=== PATIENT | female | born 1970 | race African-American/Black ===

== ENCOUNTER 2019-08-09 23:35 | Emergency (ER) | payer SELFPAY ==
[2019-08-10] MEDS ORDERED: Gabapentin 300 MG CAP PO SCH (00:45)
[2019-08-10 01:01] LABS: #Basophils 0.1 thou/uL (0.0-0.2); #Eosinphils 0.6 thou/uL (0.0-0.7); #Lymphocytes 2.6 thou/uL (1.20-3.40); #Monocytes 0.5 thou/uL (0.11-0.59); #Neutrophils 6.9 thou/uL (1.40-6.50); %Basophils 0.8 % (0.0-1.0); %Eosinophils 5.2 % (0.0-10.0); %Lymphocytes 24.2 % (21.0-51.0); %Monocytes 4.9 % (0.0-10.0); %Neutrophils 64.9 % (42.0-75.0); Hemoglobin 12.2 g/dL (12.0-16.0); Mean Corpuscular HGB CONC 35.6 g/dL (32.0-36.0); Mean Corpuscular Hemoglobin 32.2 pg (27.0-31.0); Mean Corpuscular Volume 90.2 fL (78.0-98.0); Platelet Count 332 thou/uL (130-400); RBC Distribution Width 12.8 % (11.5-14.5); Red Blood Cell (RBC) Count 3.78 mill/uL (4.20-5.40); White Blood Cell (WBC) Count 10.7 thou/uL (4.8-10.8)
[2019-08-10 01:13] LABS: ALT (SGPT) 10 U/L (8-55); AST (SGOT) 15 U/L (5-34); Albumin 3.9 g/dL (3.5-5.0); Alkaline Phosphatase 67 U/L (40-110); Anion Gap 15 mmol/L (10-20); BUN (Urea Nitrogen) 10 mg/dL (7.0-18.7); Bilirubin, Total Less than 0.2 mg/dL (0.2-1.2); CK (CPK) 155 U/L (29-168); Calc. Creatinine Clearance 0 mL/min (70-130); Calcium 8.3 mg/dL (7.8-10.44); Carbon Dioxide 26 mmol/L (22-29); Chloride 97 mmol/L (98-107); Estimated GFR-MDRD 72; Globulin 3.6 g/dL (2.4-3.5); Glucose 86 mg/dL (70-105); Potassium 3.3 mmol/L (3.5-5.1); Protein, Total 7.5 g/dL (6.0-8.3); Sodium 135 mmol/L (136-145)
--- NOTE | 2019-08-10 11:04 | RAD ---
THREE VIEWS OF THE RIGHT FOOT: INDICATION: History of fall with right foot pain. COMPARISON: Comparisons are available from 07/22/2019. FINDINGS: No displaced fracture is evident. Small accessory ossicle is seen adjacent to the navicular. [place] alignment is preserved. No radiopaque foreign body is noted. There is soft tissue swelling of th e foot and ankle which is new from the prior exam. IMPRESSION: 1. Diffuse soft tissue swelling of the right foot and ankle. 2. No definite acute fracture demonstrated. POS: BH
--- NOTE | 2019-08-10 11:05 | RAD ---
AP VIEW OF THE PELVIS: INDICATION: Fall with pelvic pain. FINDINGS: There is mild degenerative change of both hips. There is degenerative change of the SI joints and sy mphysis pubis. No displaced fracture is evident. Visualized bowel gas pattern is unobstructed. IMPRESSION: No definite acute osseous abnormality. POS: BH
--- NOTE | 2019-08-10 11:06 | RAD ---
FOUR VIEWS OF THE RIGHT KNEE: INDICATION: History of right knee pain after a fall. COMPARISON: None. FINDINGS: There is diffuse soft tissue edema involving the right leg. There are marginal osteophytes affecting the major compartments of the right knee. No joint capsular distention or acute fracture is demonst rated. IMPRESSION: Moderate osteoarthrosis of the right knee. No acute osseous abnormality. POS: BH
== END 2019-08-10 03:40 | disposition home or self-care (01) ==
LOC: ERS 23:35
DX: S80.01XA Contusion of right knee, initial encounter (principal); S90.31XA Contusion of right foot, initial encounter; G62.9 Polyneuropathy, unspecified; F12.129 Cannabis abuse with intoxication, unspecified; I25.2 Old myocardial infarction; I11.0 Hypertensive heart disease with heart failure; I50.9 Heart failure, unspecified; K21.9 Gastro-esophageal reflux disease without esophagitis; F41.9 Anxiety disorder, unspecified; F31.9 Bipolar disorder, unspecified; F17.210 Nicotine dependence, cigarettes, uncomplicated; Z86.718 Personal history of other venous thrombosis and embolism; Z86.711 Personal history of pulmonary embolism; Z79.899 Other long term (current) drug therapy; W19.XXXA Unspecified fall, initial encounter
CPT/HCPCS: 36415; 72170; 80053; 82550; 85025

== ENCOUNTER 2019-11-07 12:56 | Inpatient (IN) | payer OTHER, SELFPAY ==
[~2019-11-07 12:56] MED LIST: Iopamidol-370 76% 500 ML 1 ML ONE
[2019-11-07 13:32] LABS: #Eosinphils 0.8 thou/uL (0.0-0.7); #Lymphocytes 1.9 thou/uL (1.20-3.40); #Monocytes 0.5 thou/uL (0.11-0.59); #Neutrophils 4.6 thou/uL (1.40-6.50); %Basophils 0.5 % (0.0-1.0); %Eosinophils 10.4 % (0.0-10.0); %Lymphocytes 24.2 % (21.0-51.0); %Monocytes 5.8 % (0.0-10.0); %Neutrophils 59.1 % (42.0-75.0); Hemoglobin 13.2 g/dL (12.0-16.0); Mean Corpuscular HGB CONC 33.1 g/dL (32.0-36.0); Mean Corpuscular Hemoglobin 30.5 pg (27.0-31.0); Mean Corpuscular Volume 92.4 fL (78.0-98.0); Mean Platelet Volume 7.5 fL (7.4-10.4); Platelet Count 327 thou/uL (130-400); Red Blood Cell (RBC) Count 4.32 mill/uL (4.20-5.40); White Blood Cell (WBC) Count 7.8 thou/uL (4.8-10.8)
[2019-11-07 13:48] LABS: ALT (SGPT) 13 U/L (8-55); AST (SGOT) 13 U/L (5-34); Albumin 3.6 g/dL (3.5-5.0); Alkaline Phosphatase 76 U/L (40-110); Anion Gap 14 mmol/L (10-20); BUN (Urea Nitrogen) 11 mg/dL (7.0-18.7); Bilirubin, Total Less than 0.2 mg/dL (0.2-1.2); CK (CPK) 69 U/L (29-168); Calc. Creatinine Clearance 0 mL/min (70-130); Calcium 8.9 mg/dL (7.8-10.44); Carbon Dioxide 29 mmol/L (22-29); Chloride 100 mmol/L (98-107); Estimated GFR-MDRD 81; Globulin 3.5 g/dL (2.4-3.5); Glucose 99 mg/dL (70-105); Potassium 3.7 mmol/L (3.5-5.1); Protein, Total 7.1 g/dL (6.0-8.3); Sodium 139 mmol/L (136-145)
--- NOTE | 2019-11-07 14:03 | RAD ---
EXAM: CHEST ONE VIEW: 11/07/19 HISTORY: Left substernal chest pain, worse with moving and breathing. COMPARISON: 02/13/19. FINDINGS: Heart size is within normal limits. The lungs are clear. IMPRESSION: No significant acute intrathoracic disease. POS: OFF
[2019-11-07 15:09] LABS: Bilirubin Negative (Negative); Blood, Urine Negative (Negative); Clarity Clear (Clear); Glucose, Urine (Dipstick) Normal (Negative); Ketone, Urine Negative (Negative); Leukocyte Negative Leu/uL (Negative); Nitrite Negative (Negative); Protein, Urine (Dipstick) Negative (Neg-Trace); Specific Gravity, Urine 1.008 (1.002-1.036); Urobilinogen Normal mg/dL (Less than 2)
[2019-11-07 15:10] LABS: Pregnancy Test - Urine (BHCG) Negative (Negative); Pregu Control Background? CLEAR/WHITE (CLR/WHITE); Pregu Control Bar Appear? YES (CONTROL BAR); Specific Gravity 1.008 (1.002-1.036)
--- NOTE | 2019-11-07 16:30 | CT ---
CTA Angio Chest W WO Con History: Chest pain Comparison: Chest radiograph same day Findings: CT angiogram chest performed after the intravenous administration of contrast. 3-D renderin g provided. No proximal segmental pulmonary arterial filling defect. Aortic size is normal. No significant perica rdial effusion. Faint groundglass opacities within the posterior segment right upper lobe. Incidental note is made of mild flattening of the anterior aorta due to enlarged right diaphragmatic carloz. No aortic dissection. Moderate volume fluid in the pericardial recesses. Small volume debris within the distal trachea. Sternum and manubrium are intact. Thoracic spine is intact. No displaced rib fracture. Impression: 1. No pulmonary embolism. 2. Faint groundglass posterior segment right upper lobe could be aspiration in nature due to debris w ithin the distal trachea.. 3. Incidental note is made of mild anteroposterior flattening of the aorta from an enlarged right ganga phragmatic carloz axial image [id number].
[2019-11-07] MEDS ORDERED: Nitroglycerin 2% Ointment 1 INCH/1 GM Packet ONE (17:44)
--- NOTE | 2019-11-07 18:45 | PDOC.HHP ---
Hospitalist HPI - History of Present Illness Chest pain History of Present Illness: Ms. Bravo is a 49-year-old female with a past medical history of CHF, asthma, hypertension, hyperlipidemia, GERD, pulmonary embolism not on anticoagulation, depression, bipolar disorder who presents with 48 hours of chest pain. Patient reports that her chest pain started yesterday initially as left shoulder pain and then moved to her sternum. Initially pain was relieved with antacids however pain persisted this morning. Describes pain as a pressure that is worse with inspiration. Denies nausea vomiting, shortness of breath, abdominal pain. Denies dizziness, lightheadedness, palpitations. Reports that she has been under additional stress lately with her father in the ICU, and her sister who just had a baby yesterday who lives with her. Follows with corrective therapist, Dr. Bernard. Initially in the ED patient reports that she had a heart attack, however on further questioning this appears to have been the same incident as her pulmonary embolism in September 2016 in which she had a mild elevation in her troponins not associated with ACS. Patient was treated with Coumadin, and Eliquis which she no longer takes. No history of stents, or procedures. Endorses family history of heart disease in her father, grandfather. Patient received 2 doses of nitro, and 10 mg of morphine by EMS. Patient also reports that she took carvedilol 25 mg, and 325 ASA prior to arrival. In the ED EKG showed type I AV block, nonspecific T wave changes. No ST elevation., Chest x-ray negative for acute pathology, CTA negative for PE with mild incidental flattening of the aorta at the level of the diaphragmatic carloz. BNP 110, troponin 0 0.012, H/H 13.2/39.9. WBC 7.8, BUN/CR 11/0.9. Sodium 139, potassium 3.7 AST/ALT . Patient received Nitropaste, as well as an ice pack to her chest wall with improvement in her chest pain. Heart score 5, patient admitted to medicine service for chest pain rule out and continued monitoring. Hospitalist ROS - Review of Systems Constitutional: denies: fever, chills, sweats, weakness, malaise, other Eyes: denies: pain, vision change, conjunctivae inflammation, eyelid inflammation, redness, other ENT: denies: ear pain, ear discharge, nose pain, nose discharge, nose congestion, mouth pain, mouth swelling, throat pain, throat swelling, other Respiratory: denies: cough, dry, shortness of breath, hemoptysis, SOB with excertion, pleuritic pain, sputum, wheezing, other Cardiovascular: reports: chest pain. denies: palpitations, orthopnea, paroxysmal noc. dyspnea, edema, light headedness, other Gastrointestinal: denies: nausea, vomiting, abdominal pain, diarrhea, constipation, melena, hematochezia, other Genitourinary: denies: dysuria, frequency, incontinence, hematuria, retention, other Musculoskeletal: denies: neck pain, shoulder pain, arm pain, back pain, hand pain, leg pain, foot pain, other Skin: denies: rash, lesions, [place], bruising, other Neurological: reports: numbness (History of neuropathy to bilateral lower extremities.). denies: weakness, incoordination, change in speech, confusion, seizures, other - Medication Medications: Home medications include carvedilol 25 mg twice daily, aspirin 325 mg, amlodipine 10 mg, Lasix 20 mg, Seroquel 100 mg at night, 50 mg a.m., amitriptyline 100 mg, citalopram 40 mg, lovastatin 10 mg, gabapentin 300 mg Patient is allergic to Haldol, lisinopril Hospitalist History - Past Medical History Cardiac: reports: CHF, HTN, Hyperlipidemia Pulmonary: reports: pulmonary embolism [employer]: reports: Peripheral neuropathy Gastrointestinal: reports: GERD Psych: reports: Bipolar, Depression - Past Surgical History Past Surgical History: reports: no pertinent history - Family History Family History: reports: cardiac disorder - Social History Smoking Status: Current every day smoker (1 pack/day) Tobacco Type: cigarettes Alcohol: reports: Occassional Drugs: reports: marijuana Living Situation: With Family Activity level: independent ambulation - Exam General Appearance: NAD, awake alert Eye: PERRL, anicteric sclera ENT: normocephalic atraumatic, no oropharyngeal lesions, moist mucosa Neck: supple, symmetric, no JVD, no thyromegaly, no lymphadenopathy, no carotid bruit Heart: RRR, no murmur, no gallops, no rubs, normal peripheral pulses Heart - other findings: Sternum tender to palpation Respiratory: CTAB, no wheezes, no rales, no ronchi, normal chest expansion, no tachypnea, normal percussion Gastrointestinal: soft, non-tender, non-distended, normal bowel sounds, no palpable masses, no hepatomegaly, no splenomegaly, no bruit Extremities: no cyanosis, no clubbing, no edema Skin: normal turgor, no lesions, no rashes Neurological: cranial nerve grossly intact, no weakness, no focal deficits, no new deficit Musculoskeletal: normal tone, normal strength, no muscle wasting Psychiatric: normal affect, normal behavior, A&O x 3 Hospitalist Results - Labs Result Diagrams: 11/07/19 13:21 11/07/19 13:21 Lab results: WBC 7.8 thou/uL (4.8-10.8) 11/07/19 13:21 Hgb 13.2 g/dL (12.0-16.0) 11/07/19 13:21 Hct 39.9 % (36.0-47.0) 11/07/19 13:21 MCV 92.4 fL (78.0-98.0) 11/07/19 13:21 Plt Count 327 thou/uL (130-400) 11/07/19 13:21 Neutrophils % 59.1 % (42.0-75.0) 11/07/19 13:21 Sodium 139 mmol/L (136-145) 11/07/19 13:21 Potassium 3.7 mmol/L (3.5-5.1) 11/07/19 13:21 Chloride 100 mmol/L (98-107) 11/07/19 13:21 Carbon Dioxide 29 mmol/L (22-29) 11/07/19 13:21 BUN 11 mg/dL (7.0-18.7) 11/07/19 13:21 Creatinine 0.90 mg/dL (0.6-1.1) 11/07/19 13:21 Glucose 99 mg/dL (70-105) 11/07/19 13:21 Calcium 8.9 mg/dL (7.8-10.44) 11/07/19 13:21 Total Bilirubin Less than 0.2 mg/dL (0.2-1.2) L 11/07/19 13:21 AST 13 U/L (5-34) 11/07/19 13:21 ALT 13 U/L (8-55) 11/07/19 13:21 Alkaline Phosphatase 76 U/L (40-110) 11/07/19 13:21 Creatine Kinase 69 U/L (29-168) 11/07/19 13:21 Troponin I 0.010 ng/mL (< 0.028) 11/07/19 17:36 B-Natriuretic Peptide 110.9 pg/mL (0-100) H 11/07/19 13:17 Serum Total Protein 7.1 g/dL (6.0-8.3) 11/07/19 13:21 Albumin 3.6 g/dL (3.5-5.0) 11/07/19 13:21 Urine Ketones Negative mg/dL (Negative) 11/07/19 14:19 Urine Blood Negative (Negative) 11/07/19 14:19 Urine Nitrite Negative (Negative) 11/07/19 14:19 Ur Leukocyte Esterase Negative Abhilash/uL (Negative) 11/07/19 14:19 Hospitalist H&P A/P - Problem (1) Chest pain Code(s): R07.9 - CHEST PAIN, UNSPECIFIED Status: Acute (2) Hyperlipidemia Code(s): E78.5 - HYPERLIPIDEMIA, UNSPECIFIED Status: Acute (3) GERD (gastroesophageal reflux disease) Code(s): K21.9 - GASTRO-ESOPHAGEAL REFLUX DISEASE WITHOUT ESOPHAGITIS Status: Acute (4) Bipolar disorder Code(s): F31.9 - BIPOLAR DISORDER, UNSPECIFIED Status: Acute (5) HTN (hypertension) Code(s): I10 - ESSENTIAL (PRIMARY) HYPERTENSION Status: Acute (6) Tobacco abuse Code(s): Z72.0 - TOBACCO USE Status: Acute - Plan Plan: Chest pain: 49-year-old female with history of CHF, hypertension, hyperlipidemia, PE who presents with squeezing substernal, but reproducible chest pain. EKG showed type I AV block, and nonspecific T wave changes, initial troponin 0 0.012. Chest x-ray negative, CTA negative for PE. Patient received ASA, nitro paste, morphine with improvement in her pain. Heart score 5. Follows with Dr. Bernard. 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 Completed 6 months of treatment with Eliquis. No longer on anticoagulation. CTA negative for PE. Hypertension: Continue home carvedilol, amlodipine, Lasix Hyperlipidemia: Continue home lovastatin 10 mg Peripheral neuropathy: Continue home gabapentin 300 mg, amitriptyline 100 mg Bipolar depression: Continue home Seroquel 100 mg at night, 50 mg in the morning, citalopram 40 mg. Patient's mood is currently stable DVT prophylaxis: Lovenox Full code Case discussed with attending physician, Dr. Jennings
[2019-11-07 19:13] LABS: CKMB 0.5 ng/mL (0-6.6)
[2019-11-07 19:56] VITALS: BMI 42.5
[2019-11-07] MEDS: Gabapentin 300 MG CAP PO SCH (21:10)
[2019-11-07] MEDS: Nitroglycerin 2% Ointment 1 INCH/1 GM Packet TOP SCH (21:13)
[2019-11-07] MEDS ORDERED: Senokot S 8.6-50 MG TAB PO PRN (22:45)
[2019-11-08 04:40] LABS: #Eosinphils 0.7 thou/uL (0.0-0.7); #Monocytes 0.3 thou/uL (0.11-0.59); #Neutrophils 3.4 thou/uL (1.40-6.50); %Basophils 0.6 % (0.0-1.0); %Eosinophils 10.6 % (0.0-10.0); %Lymphocytes 30.9 % (21.0-51.0); %Monocytes 5.4 % (0.0-10.0); %Neutrophils 52.4 % (42.0-75.0); Hemoglobin 11.7 g/dL (12.0-16.0); Mean Corpuscular HGB CONC 32.1 g/dL (32.0-36.0); Mean Corpuscular Hemoglobin 29.8 pg (27.0-31.0); Mean Corpuscular Volume 92.8 fL (78.0-98.0); Mean Platelet Volume 7.3 fL (7.4-10.4); Platelet Count 323 thou/uL (130-400); RBC Distribution Width 12.1 % (11.5-14.5); Red Blood Cell (RBC) Count 3.94 mill/uL (4.20-5.40); White Blood Cell (WBC) Count 6.4 thou/uL (4.8-10.8)
[2019-11-08] MEDS: Acetaminophen 325 MG TAB PO PRN ×3 (05:01→20:29)
[2019-11-08 05:06] LABS: Anion Gap 13 mmol/L (10-20); BUN (Urea Nitrogen) 9 mg/dL (7.0-18.7); Calc. Creatinine Clearance 160 mL/min (70-130); Calcium 8.5 mg/dL (7.8-10.44); Carbon Dioxide 25 mmol/L (22-29); Chloride 100 mmol/L (98-107); Estimated GFR-MDRD Greater than 90; Glucose 77 mg/dL (70-105); Potassium 3.4 mmol/L (3.5-5.1); Sodium 135 mmol/L (136-145)
[2019-11-08] MEDS: Citalopram 20 MG TAB PO SCH (08:07)
[2019-11-08] MEDS: Aspirin 325 mg Enteric Coated Tablet PO SCH (08:07)
[2019-11-08] MEDS: Carvedilol 25 MG TAB PO SCH ×2 (08:07→15:23)
[2019-11-08] MEDS: Enoxaparin Sodium 40 MG/0.4 ML SYRINGE SC SCH ×2 (08:07→16:25)
[2019-11-08] MEDS: Amlodipine 10 MG TAB PO SCH (08:08)
[2019-11-08] MEDS: Gabapentin 300 MG CAP PO SCH ×3 (08:08→19:52)
[2019-11-08] MEDS: Nitroglycerin 2% Ointment 1 INCH/1 GM Packet TOP SCH ×2 (08:08→20:13)
[2019-11-08] MEDS ORDERED: Regadenoson 0.4 MG/5 ML SYRINGE ONE (09:24)
[2019-11-08] MEDS ORDERED: Potassium Citrate 10 MEQ TAB PO SCH (10:00)
[2019-11-08 12:25] LABS: SARS-CoV-2 MS2 Positive; SARS-CoV-2 N Gene Negative; SARS-CoV-2 S Gene Negative; SARS-CoV-2 by NAA Not Detected (NotDetected); SARS-CoV-2 orf1ab Negative
--- NOTE | 2019-11-08 14:28 | PDOC.HOSPP ---
- Subjective Encounter Date: 11/08/19 Encounter Time: 14:00 Subjective: Patient is having her lunch. She does have ongoing intermittent chest pain before and after her stress test which is first part is completed today. - Objective Vital Signs & Weight: Vital Signs (12 hours) Temp Pulse Resp BP Pulse Ox 11/08/19 11:53 97.7 F 76 16 114/66 99 11/08/19 08:08 76 11/08/19 07:43 97.6 F 76 16 117/69 97 11/08/19 03:00 98.0 F 72 14 111/65 95 Weight Weight 247 lb 14.4 oz I&O: 11/07/19 11/08/19 11/09/19 06:59 06:59 06:59 Intake Total 240 360 Output Total 500 Balance -260 360 Result Diagrams: 11/08/19 04:27 11/08/19 04:27 Hospitalist ROS - Medication Medications: Active Medications Generic Name Dose Route Start Last Admin Trade Name Freq PRN Reason Stop Dose Admin Acetaminophen 650 mg 11/07/19 22:45 11/08/19 05:01 Acetaminophen 325 Mg Tab PO 650 mg Q4H PRN Administration Headache/Fever/Mild Pain (1-3) Amlodipine Besylate 10 mg 11/08/19 09:00 11/08/19 08:08 Amlodipine 10 Mg Tab PO 10 mg DAILY ROME Administration Aspirin 325 mg 11/08/19 09:00 11/08/19 08:07 Aspirin 325 Mg Enteric Coated Tablet PO 325 mg DAILY ROME Administration Carvedilol 25 mg 11/08/19 08:00 11/08/19 08:07 Carvedilol 25 Mg Tab PO Not Given BID- ROME Citalopram Hydrobromide 40 mg 11/08/19 09:00 11/08/19 08:07 Citalopram 20 Mg Tab PO 40 mg DAILY RMOE Administration Enoxaparin Sodium 40 mg 11/08/19 09:00 11/08/19 08:07 Enoxaparin Sodium 40 Mg/0.4 Ml Syringe SC Not Given 09 ROME Gabapentin 300 mg 11/07/19 21:00 11/08/19 08:08 Gabapentin 300 Mg Cap PO 300 mg TID ROME Administration Nitroglycerin 1 inch 11/07/19 21:00 11/08/19 08:08 Nitroglycerin 2% Ointment 1 Inch/1 Gm Packet TOP Not Given BID ROME Quetiapine Fumarate 100 mg 11/07/19 21:00 11/07/19 21:10 Quetiapine Fumarate 100 Mg Tab PO 100 mg HS ROME Administration Sodium Chloride 10 ml 11/07/19 22:45 11/08/19 08:10 Flush - Normal Saline 10 Ml Syringe IVF 10 ml PRN PRN Administration Saline Flush - Exam General Appearance: NAD, awake alert Eye: PERRL ENT: normocephalic atraumatic Neck: supple Heart: RRR Respiratory: CTAB, normal chest expansion Gastrointestinal: soft, normal bowel sounds Neurological: no focal deficits Psychiatric: A&O x 3 Hosp A/P - Plan 49-year-old female with history of CHF, hypertension, hyperlipidemia, PE who presents with squeezing substernal, but reproducible chest pain. EKG showed type I AV block, and nonspecific T wave changes, initial troponin 0 0.012. Chest x-ray negative, CTA negative for PE. -First part of stress test completed today -Troponin x3-. Will check A1c TSH and lipid panel. History of pulmonary embolism: History of unprovoked PE in September 2016. Completed 6 months of treatment with Eliquis. Hypertension: Continue home carvedilol, amlodipine, Lasix Hyperlipidemia: Continue home lovastatin 10 mg Peripheral neuropathy: Continue home gabapentin 300 mg, amitriptyline 100 mg Bipolar depression: Continue home Seroquel 100 mg at night, 50 mg in the morning, citalopram 40 mg. Patient's mood is currently stable Mild hypokalemia that is replaced. Pending second part of stress test. Follow-up with lipid panel. She is on lovastatin at home.
--- NOTE | 2019-11-08 18:53 | CON ---
DATE OF CONSULTATION: HISTORY OF PRESENT ILLNESS: Tiffani Bravo is a 49-year-old black female. The patient has been evaluated by Dr. Juárez in the past. In July 2016, she presented with chest discomfort. She had a CT angiogram of the chest, which revealed no evidence of pulmonary embolism. She then underwent nuclear scan, which revealed no evidence of ischemia. This is noted in the discharge summary. However, I do not see a nuclear medicine report in the computer. She then presented again in September 2016 with chest discomfort and underwent CT angiogram of the chest, which revealed extensive bilateral pulmonary emboli. She also had mildly elevated troponin at that time. She was placed on Eliquis and states that she took this until early 2019 and then stopped. She now is admitted with chest pressure that started several days ago. She would have 5-10 minutes of pressure in chest that would resolve. The pain was pleuritic in nature. The discomfort did not seem to be positionally related. She received 2 dose of nitroglycerin as well as 10 mg of morphine. Chest CT angiogram revealed no evidence of pulmonary embolism. There was a faint ground-glass appearance of the posterior segment of the right upper lobe, possibly due to aspiration. It is of note that in these CT angiograms, no reference is made to any coronary artery calcification. Cardiac enzymes have been negative. She has undergone stress portion of Cardiolite with resting portion tomorrow. PAST MEDICAL HISTORY: Hypertension, hyperlipidemia, history of pulmonary embolism, GERD, bipolar disorder. CURRENT MEDICATIONS: 1. Albuterol q.4 hours p.r.n. 2. Amitriptyline 100 at bedtime. 3. Amlodipine 10 mg daily. 4. Aspirin 325 daily. 5. Carvedilol 25 mg b.i.d. 6. Celexa 20 mg daily. 7. Flonase nasal spray. 8. Furosemide 20 q.a.m. 9. Gabapentin 300 t.i.d. 10. Lovastatin 10 q.p.m. 11. Protonix 40 daily. 12. Seroquel 50 q.a.m. and 100 mg at bedtime. 13. Triamterene/hydrochlorothiazide 75/50 q.a.m. ALLERGIES: LISINOPRIL AND HALDOL. SOCIAL HISTORY: She smokes one pack per day and occasionally drinks. REVIEW OF SYSTEMS: Unremarkable except as noted above. PHYSICAL EXAMINATION: VITAL SIGNS: Blood pressure 114/66, pulse of 76. HEENT: PERRL. NECK: Supple. CHEST: Clear. CARDIAC: S1 and S2 normal without any S3, S4, or murmurs. Carotid upstrokes normal without bruits. ABDOMEN: Obese. Normal bowel sounds. No tenderness. EXTREMITIES: Reveal trace pretibial edema. NEUROLOGIC: Grossly intact. SKIN: Warm and dry. MUSCULOSKELETAL: Revealed palpable parasternal tenderness that seems to reproduce her pain. LABORATORY DATA: EKG revealed normal sinus rhythm with possible septal infarction with poor R-wave progression. Hemoglobin 11.7, hematocrit 36.5, white count 6400, platelets 323,000. Sodium 135, potassium 3.4, chloride 100, carbon dioxide 25, BUN 9, creatinine 0.77. Cardiac enzymes are unremarkable. BNP 110.9. IMPRESSION: 1. Atypical chest discomfort, which is pleuritic in nature and she does have palpable chest wall pain and normal cardiac enzymes. 2. History of bilateral pulmonary emboli in September 2016, on anticoagulation for approximately 2-1/2 years. 3. Hypertension. 4. Hypercholesterolemia. 5. Smoker. 6. Gastroesophageal reflux disease. 7. Bipolar disorder. RECOMMENDATIONS: Ms. Spencer chest pain is atypical with palpable chest wall tenderness and a pleuritic component to her pain. The pain does not seem to be positionally related. She is currently undergoing adenosine Cardiolite testing with the rest scan tomorrow. Job ID: [id number] MTDD
[2019-11-08] MEDS: Atorvastatin Calcium 20 MG TAB PO SCH (19:52)
[2019-11-09 04:52] LABS: #Basophils 0.1 thou/uL (0.0-0.2); #Eosinphils 0.8 thou/uL (0.0-0.7); #Lymphocytes 1.9 thou/uL (1.20-3.40); #Monocytes 0.3 thou/uL (0.11-0.59); %Eosinophils 12.7 % (0.0-10.0); %Lymphocytes 31.8 % (21.0-51.0); %Monocytes 4.7 % (0.0-10.0); %Neutrophils 49.7 % (42.0-75.0); Hemoglobin 12.1 g/dL (12.0-16.0); Mean Corpuscular HGB CONC 33.1 g/dL (32.0-36.0); Mean Corpuscular Hemoglobin 30.7 pg (27.0-31.0); Mean Corpuscular Volume 92.9 fL (78.0-98.0); Mean Platelet Volume 7.4 fL (7.4-10.4); Platelet Count 320 thou/uL (130-400); Red Blood Cell (RBC) Count 3.92 mill/uL (4.20-5.40); White Blood Cell (WBC) Count 5.9 thou/uL (4.8-10.8)
[2019-11-09 05:11] LABS: Anion Gap 15 mmol/L (10-20); BUN (Urea Nitrogen) 10 mg/dL (7.0-18.7); Calc. Creatinine Clearance 165 mL/min (70-130); Calcium 8.5 mg/dL (7.8-10.44); Carbon Dioxide 28 mmol/L (22-29); Cardiac Risk 5.1 (Less than 4.5); Chloride 99 mmol/L (98-107); Cholesterol 193 mg/dl (< 200 Desired); Estimated GFR-MDRD Greater than 90; Glucose 74 mg/dL (70-105); HDL Cholesterol 38 mg/dL (>60 Neg Risk); LDL Cholesterol, Calculated 110 mg/dL; Potassium 3.6 mmol/L (3.5-5.1); Sodium 138 mmol/L (136-145); Triglycerides 225 mg/dL (Less than 150)
[2019-11-09] MEDS: Acetaminophen 325 MG TAB PO PRN (06:36)
[2019-11-09] MEDS: Gabapentin 300 MG CAP PO SCH ×3 (08:27→21:10)
[2019-11-09] MEDS: Aspirin 325 mg Enteric Coated Tablet PO SCH (08:27)
[2019-11-09] MEDS: Citalopram 20 MG TAB PO SCH (08:27)
[2019-11-09] MEDS: Amlodipine 10 MG TAB PO SCH (08:27)
--- NOTE | 2019-11-09 10:16 | NM ---
Radionucleotide stress and rest myocardial perfusion scan with CT attenuation correction and SPECT im aging Left ventricular wall motion evaluation and ejection fraction HISTORY: Chest pain. CHF. FINDINGS: There is heterogeneous uptake of radiotracer throughout the left ventricular myocardium. On the stress images, there is a moderate sized area of markedly diminished radiotracer uptake involving the mid to distal portion of the anteroseptal wall, extending to the apex. On the rest imag es, there is normal distribution of radiotracer in this area. QGS analysis of gated SPECT imaging shows no wall motion abnormalities. Ejection fraction calculated at 79%. IMPRESSION : Probably abnormal myocardial perfusion scan, showing reversibility at the anteroseptal wall suggestiv e of ischemia. Preserved LVEF.
[2019-11-09] MEDS: Carvedilol 25 MG TAB PO SCH ×2 (10:30→15:16)
[2019-11-09] MEDS: Nitroglycerin 2% Ointment 1 INCH/1 GM Packet TOP SCH ×3 (10:30→21:11)
[2019-11-09] MEDS: Enoxaparin Sodium 40 MG/0.4 ML SYRINGE SC SCH ×2 (10:30→15:16)
--- NOTE | 2019-11-09 15:43 | PDOC.HOSPP ---
- Subjective Encounter Date: 11/09/19 Encounter Time: 08:50 Subjective: Patient completing her second part of stress test today. She denies any chest pain today. - Objective Vital Signs & Weight: Vital Signs (12 hours) Temp Pulse Resp BP BP Pulse Ox 11/09/19 11:49 98.3 F 71 16 130/73 97 11/09/19 10:50 98 11/09/19 07:53 98.2 F 67 16 111/59 L 98 11/09/19 03:50 98.2 F 70 18 122/60 96 Weight Weight 247 lb 14.4 oz I&O: 11/08/19 11/09/19 11/10/19 06:59 06:59 06:59 Intake Total 240 960 240 Output Total 500 1200 Balance -260 -240 240 Result Diagrams: 11/09/19 04:18 11/09/19 04:18 Hospitalist ROS - Medication Medications: Active Medications Generic Name Dose Route Start Last Admin Trade Name Freq PRN Reason Stop Dose Admin Acetaminophen 650 mg 11/07/19 22:45 11/09/19 06:36 Acetaminophen 325 Mg Tab PO 650 mg Q4H PRN Administration Headache/Fever/Mild Pain (1-3) Amlodipine Besylate 10 mg 11/08/19 09:00 11/09/19 08:27 Amlodipine 10 Mg Tab PO 10 mg DAILY ROME Administration Aspirin 325 mg 11/08/19 09:00 11/09/19 08:27 Aspirin 325 Mg Enteric Coated Tablet PO 325 mg DAILY ROME Administration Atorvastatin Calcium 20 mg 11/08/19 21:00 11/08/19 19:52 Atorvastatin Calcium 20 Mg Tab PO 20 mg HS ROME Administration Carvedilol 25 mg 11/08/19 08:00 11/09/19 15:16 Carvedilol 25 Mg Tab PO 25 mg BID-WM ROME Administration Citalopram Hydrobromide 40 mg 11/08/19 09:00 11/09/19 08:27 Citalopram 20 Mg Tab PO 40 mg DAILY ROME Administration Enoxaparin Sodium 40 mg 11/08/19 09:00 11/09/19 15:16 Enoxaparin Sodium 40 Mg/0.4 Ml Syringe SC 40 mg 0900 ROME Administration Gabapentin 300 mg 11/07/19 21:00 11/09/19 15:15 Gabapentin 300 Mg Cap PO 300 mg TID ROME Administration Nitroglycerin 1 inch 11/07/19 21:00 11/09/19 15:16 Nitroglycerin 2% Ointment 1 Inch/1 Gm Packet TOP 1 inch BID ROME Administration Quetiapine Fumarate 100 mg 11/07/19 21:00 11/08/19 19:52 Quetiapine Fumarate 100 Mg Tab PO 100 mg HS ROME Administration Sodium Chloride 10 ml 11/07/19 22:45 11/09/19 08:28 Flush - Normal Saline 10 Ml Syringe IVF 10 ml PRN PRN Administration Saline Flush - Exam General Appearance: NAD, awake alert Eye: PERRL ENT: normocephalic atraumatic Neck: supple Heart: RRR, normal peripheral pulses Respiratory: CTAB, normal chest expansion Gastrointestinal: soft, normal bowel sounds Neurological: no weakness Hosp A/P - Plan 49-year-old female with history of CHF, hypertension, hyperlipidemia, PE who presents with squeezing substernal, but reproducible chest pain. EKG showed type I AV block, and nonspecific T wave changes, initial troponin 0 0.012. Chest x-ray negative, CTA negative for PE. -First part of stress test completed today -Troponin x3-. Will check A1c TSH and lipid panel. History of pulmonary embolism: History of unprovoked PE in September 2016. Completed 6 months of treatment with Eliquis. Hypertension: Continue home carvedilol, amlodipine, Lasix Hyperlipidemia: Continue home lovastatin 10 mg Peripheral neuropathy: Continue home gabapentin 300 mg, amitriptyline 100 mg Bipolar depression: Continue home Seroquel 100 mg at night, 50 mg in the morning, citalopram 40 mg. Patient's mood is currently stable Mild hypokalemia that is replaced. Pending second part of stress test. Follow-up with lipid panel. She is on lovastatin at home. Stress test showed abnormal with the reversibility anterior wall suggestive of ischemia. Pending further cardiology evaluation.
--- NOTE | 2019-11-09 15:50 | EKG ---
Test Reason : STAT Blood Pressure : / mmHG Vent. Rate : 072 BPM Atrial Rate : 072 BPM P-R Int : 220 ms QRS Dur : 086 ms QT Int : 392 ms P-R-T Axes : 007 -10 -11 degrees QTc Int : 429 ms Sinus rhythm with 1st degree A-V block Septal infarct , age undetermined Abnormal ECG No previous ECGs available Confirmed by ANTONIETA GERBER M.D. ([id number]) on 11/09/2019 3:49:34 PM Referred By: AIDA Confirmed By:ANTONIETA GERBER M.D.
--- NOTE | 2019-11-09 16:30 | PRG ---
DATE OF SERVICE: 11/09/2019 SUBJECTIVE: Ms. Bravo continues to have pain, although it is better. Again, it is positional. She underwent a noninvasive stress study that was positive for ischemia along the anteroseptal wall. LVEF estimated 79%. OBJECTIVE: GENERAL: Patient is a pleasant female, who is in no acute distress. The patient appears their stated age. VITAL SIGNS: Blood pressure 130/79, pulse 79, and temperature afebrile. NEUROLOGIC: The patient is alert and oriented x3 with no focal neurologic deficits. HEENT: Sclerae without icterus. Mouth has moist mucous membranes with normal pallor. NECK: No JVD. Carotid upstroke brisk. No bruits bilaterally. LUNGS: Clear to auscultation with unlabored respirations. BACK: No scoliosis or kyphosis. CARDIAC: Regular rate and rhythm with normal S1 and S2. No S3 or S4 noted. No significant rubs, murmurs, thrills, or gallops noted throughout the precordium. PMI is not displaced. There is no parasternal heave. ABDOMEN: Soft, nontender, nondistended. No peritoneal signs present. No hepatosplenomegaly. No abnormal striae. EXTREMITIES: 2+ femoral and 2+ dorsalis pedis pulses. No cyanosis, clubbing, or edema. SKIN: No gross abnormalities. PERTINENT LABORATORY DATA: Hemoglobin 12.1, creatinine 0.75. Troponin negative. IMPRESSION: 1. Abnormal stress study. 2. Atypical chest pain. 3. Tobacco abuse. RECOMMENDATIONS: Ms. Bravo did have an abnormal stress study with anteroseptal wall ischemia. I discussed medical therapy versus coronary angiography. She states she would like to get some answers as far as why she is having pain and want to make sure this does not in her heart. We therefore proceed with coronary angiography and possible PCI. I discussed procedure in full detail with Ms. Bravo. Risks include, but not limited to the following: I discussed the procedure in full detail with the patient. The risks of the procedure were also discussed. The risks of the procedure include but are not limited to the following: , stroke, AR, need for emergency surgery, loss of limb, bleeding, and infection, as well as a reaction to the dye causing kidney failure and needing long-term dialysis. I also discussed the risks of PCI to include all of the above including coronary dissection and perforation in addition to acute stent thrombosis and restenosis. All questions answered. Given the above, the patient agreed to proceed with above procedure. I also discussed drug-coated versus nondrug-coated stent placement. We will proceed with drug-coated stent placement if needed. There are no contraindications. Job ID: [id number]
[2019-11-09] MEDS ORDERED: Communication Order-Pharmacy FS SCH (17:30)
[2019-11-09] MEDS: Atorvastatin Calcium 20 MG TAB PO SCH (21:10)
[2019-11-10 04:37] LABS: #Basophils 0.1 thou/uL (0.0-0.2); #Eosinphils 0.9 thou/uL (0.0-0.7); #Lymphocytes 2.1 thou/uL (1.20-3.40); #Monocytes 0.4 thou/uL (0.11-0.59); %Basophils 0.9 % (0.0-1.0); %Eosinophils 13.7 % (0.0-10.0); %Lymphocytes 32.2 % (21.0-51.0); %Monocytes 6.2 % (0.0-10.0); Hemoglobin 11.8 g/dL (12.0-16.0); Mean Corpuscular HGB CONC 33.3 g/dL (32.0-36.0); Mean Platelet Volume 7.4 fL (7.4-10.4); Platelet Count 309 thou/uL (130-400); RBC Distribution Width 11.9 % (11.5-14.5); White Blood Cell (WBC) Count 6.4 thou/uL (4.8-10.8)
[2019-11-10 05:04] LABS: Anion Gap 11 mmol/L (10-20); BUN (Urea Nitrogen) 10 mg/dL (7.0-18.7); Calc. Creatinine Clearance 169 mL/min (70-130); Calcium 8.6 mg/dL (7.8-10.44); Carbon Dioxide 32 mmol/L (22-29); Chloride 100 mmol/L (98-107); Estimated GFR-MDRD Greater than 90; Glucose 91 mg/dL (70-105); Potassium 3.9 mmol/L (3.5-5.1); Sodium 139 mmol/L (136-145)
[2019-11-10] MEDS: Citalopram 20 MG TAB PO SCH (05:54)
[2019-11-10] MEDS: Gabapentin 300 MG CAP PO SCH ×3 (05:54→21:17)
[2019-11-10] MEDS: Amlodipine 10 MG TAB PO SCH (05:54)
[2019-11-10] MEDS: Aspirin 325 mg Enteric Coated Tablet PO SCH (05:54)
[2019-11-10] MEDS: Acetaminophen 325 MG TAB PO PRN (05:55)
[2019-11-10] MEDS: Carvedilol 25 MG TAB PO SCH ×2 (05:55→17:01)
[2019-11-10] MEDS ORDERED: Lidocaine 1% (PF) 30 ML VIAL ONE (07:48)
[2019-11-10] MEDS ORDERED: Heparin 10,000 UNITS/ 10 ML VIAL ONE (07:55)
[2019-11-10] MEDS ORDERED: Verapamil 5 MG/2 ML VIAL ONE (07:55)
[2019-11-10] MEDS ORDERED: Nitroglycerin 100MG/250ML BOT 250 ML ONE (07:55)
[2019-11-10] MEDS ORDERED: Fentanyl 100 MCG/2 ML VIAL ONE (09:05)
[2019-11-10] MEDS ORDERED: Midazolam HCl 2 mg/2 ml Vial ONE (09:16)
[2019-11-10] MEDS ORDERED: Acetaminophen/Codeine 30-300mg Tablet PO PRN (09:28)
[2019-11-10] MEDS ORDERED: Sodium Chloride 0.9% 200 ML IV PRN (09:28)
[2019-11-10] MEDS ORDERED: Nitroglycerin 0.4 MG TAB (25 Tab Bottle) SL PRN (09:28)
[2019-11-10] MEDS ORDERED: Sodium Chloride 0.9% 1,000 ML IV SCH (09:30)
[2019-11-10] MEDS: Nitroglycerin 2% Ointment 1 INCH/1 GM Packet TOP SCH (10:18)
[2019-11-10] MEDS: Acetaminophen/Codeine 30-300mg Tablet PO PRN ×3 (11:17→21:23)
--- NOTE | 2019-11-10 13:20 | PDOC.HOSPP ---
- Subjective Encounter Date: 11/10/19 Encounter Time: 10:00 Subjective: Patient is resting well. She had a cath through the radial artery approach. Mild discomfort. Cath report pending. It appears not significant stenosis to place stent. - Objective Vital Signs & Weight: Vital Signs (12 hours) Temp Pulse Resp BP Pulse Ox 11/10/19 11:15 98.4 F 73 16 111/62 97 11/10/19 08:01 98 11/10/19 07:25 97.9 F 74 16 95/52 L 95 11/10/19 05:54 81 11/10/19 05:30 98.6 F 80 18 140/71 98 Weight Weight 250 lb 1.6 oz I&O: 11/09/19 11/10/19 11/11/19 06:59 06:59 06:59 Intake Total 960 1330 Output Total 1200 1350 Balance -240 -20 Result Diagrams: 11/10/19 04:04 11/10/19 04:04 Hospitalist ROS - Medication Medications: Active Medications Generic Name Dose Route Start Last Admin Trade Name Freq PRN Reason Stop Dose Admin Acetaminophen 650 mg 11/07/19 22:45 11/10/19 05:55 Acetaminophen 325 Mg Tab PO 650 mg Q4H PRN Administration Headache/Fever/Mild Pain (1-3) Acetaminophen/Codeine Phosphate 2 tab 11/10/19 09:28 11/10/19 11:17 Acetaminophen/Codeine 30-300mg Tablet PO 2 tab Q4H PRN Administration Moderate Pain (4-6) Amlodipine Besylate 10 mg 11/08/19 09:00 11/10/19 05:54 Amlodipine 10 Mg Tab PO 10 mg DAILY ROME Administration Aspirin 325 mg 11/08/19 09:00 11/10/19 05:54 Aspirin 325 Mg Enteric Coated Tablet PO 325 mg DAILY ROME Administration Atorvastatin Calcium 20 mg 11/08/19 21:00 11/09/19 21:10 Atorvastatin Calcium 20 Mg Tab PO 20 mg HS ROME Administration Carvedilol 25 mg 11/08/19 08:00 11/10/19 05:55 Carvedilol 25 Mg Tab PO 25 mg BID-WM ROME Administration Citalopram Hydrobromide 40 mg 11/08/19 09:00 11/10/19 05:54 Citalopram 20 Mg Tab PO 40 mg DAILY ROME Administration Gabapentin 300 mg 11/07/19 21:00 11/10/19 05:54 Gabapentin 300 Mg Cap PO 300 mg TID ROME Administration Sodium Chloride 1,000 mls @ 125 mls/hr 11/10/19 09:30 11/10/19 10:17 Normal Saline 0.9% IV 11/10/19 13:31 1,000 mls .Q8H ROME Administration Quetiapine Fumarate 100 mg 11/07/19 21:00 11/09/19 21:10 Quetiapine Fumarate 100 Mg Tab PO 100 mg HS ROME Administration Sodium Chloride 10 ml 11/07/19 22:45 11/09/19 08:28 Flush - Normal Saline 10 Ml Syringe IVF 10 ml PRN PRN Administration Saline Flush - Exam General Appearance: NAD, awake alert Eye: PERRL ENT: normocephalic atraumatic Neck: supple Heart: RRR, normal peripheral pulses Respiratory: CTAB, normal chest expansion Gastrointestinal: soft, normal bowel sounds Neurological: no focal deficits Psychiatric: A&O x 3 Hosp A/P - Plan 49-year-old female with history of CHF, hypertension, hyperlipidemia, PE who presents with squeezing substernal, but reproducible chest pain. EKG showed type I AV block, and nonspecific T wave changes, initial troponin 0 0.012. Chest x-ray negative, CTA negative for PE. -First part of stress test completed today -Troponin x3-. Will check A1c TSH and lipid panel. History of pulmonary embolism: History of unprovoked PE in September 2016. Completed 6 months of treatment with Eliquis. Hypertension: Continue home carvedilol, amlodipine, Lasix Hyperlipidemia: Continue home lovastatin 10 mg Peripheral neuropathy: Continue home gabapentin 300 mg, amitriptyline 100 mg Bipolar depression: Continue home Seroquel 100 mg at night, 50 mg in the morning, citalopram 40 mg. Patient's mood is currently stable Mild hypokalemia that is replaced. Pending second part of stress test. Follow-up with lipid panel. She is on lovastatin at home. Stress test showed abnormal with the reversibility anterior wall suggestive of ischemia. Pending further cardiology evaluation. Anteroseptal wall ischemia Coronary artery disease -Status post cath -It appears that she did not require any stent placement.--Report pending. Regarding liver function test her ALT 13 Okay to start her on Lipitor- 40mg Hyperlipidemia with LDL of 110. -TSH in the normal range
[2019-11-10] MEDS ORDERED: Atorvastatin Calcium 40 MG TAB PO SCH (21:00)
[2019-11-11 04:21] LABS: Anion Gap 12 mmol/L (10-20); BUN (Urea Nitrogen) 9 mg/dL (7.0-18.7); Calc. Creatinine Clearance 178 mL/min (70-130); Calcium 8.4 mg/dL (7.8-10.44); Carbon Dioxide 25 mmol/L (22-29); Chloride 104 mmol/L (98-107); Estimated GFR-MDRD Greater than 90; Glucose 103 mg/dL (70-105); Sodium 137 mmol/L (136-145)
[2019-11-11] MEDS: Aspirin 325 mg Enteric Coated Tablet PO SCH (08:16)
[2019-11-11] MEDS: Gabapentin 300 MG CAP PO SCH (08:16)
[2019-11-11] MEDS: Citalopram 20 MG TAB PO SCH (08:17)
[2019-11-11] MEDS: Carvedilol 25 MG TAB PO SCH (08:18)
[2019-11-11] MEDS: Amlodipine 10 MG TAB PO SCH (10:24)
[2019-11-11 13:16] VITALS: BP 99/50; TEMP 98.7
--- NOTE | 2019-11-11 15:44 | DIS ---
DATE OF ADMISSION: 11/07/2019 DATE OF DISCHARGE: 11/11/2019 DISCHARGE DIAGNOSES: 1. Chest pain and stress test showing anteroseptal wall ischemia. 2. History of pulmonary embolism, on Eliquis. 3. Hypertension. 4. Hyperlipidemia. 5. Peripheral neuropathy, on gabapentin as well amitriptyline. 6. Bipolar depression. 7. Coronary artery disease, status post catheterization. 8. Hyperlipidemia with LDL of 110. DISCHARGE MEDICATIONS: 1. She will be continuing most of her home regimen including. 2. Amitriptyline 100 mg at bedtime. 3. Amlodipine 10 mg daily. 4. Aspirin 325 mg daily. 5. Coreg 25 mg twice a day. 6. Celexa daily. 7. Diclofenac 75 mg twice a day. 8. Fluticasone for allergy. 9. Lasix 20 mg daily. 10. Gabapentin 300 mg three times a day. 11. Lovastatin 10 mg daily. 12. Pantoprazole 40 mg daily. 13. Seroquel 50 mg in the daytime, 100 mg at bedtime. 14. Triamterene hydrochlorothiazide 75/50. In a nutshell there is no change in her home medications during this hospitalization. PHYSICAL EXAMINATION: VITAL SIGNS: On the day of discharge, temperature 98.7, pulse 71, blood pressure 199/50, saturating 96% on room air. GENERAL: The patient is alert, oriented, not in any acute distress. Discharge plan discussed with her. All her questions answered. She is comfortable going home. One of her family member will give her a ride this afternoon. CARDIOVASCULAR: Regular rate and rhythm without murmurs, rubs, or gallops. LUNGS: Clear to auscultation bilaterally without wheezing, rales, or rhonchi. ABDOMEN: Soft, nontender, nondistended. Good bowel sounds. HOSPITAL COURSE: A 49-year-old female with a history of CHF, hypertension, hyperlipidemia, PE, presented with substernal and reproducible chest pain. EKG showed AV block type [address] wave changes. Initial troponin was 0.012. chest x-ray negative and CTA negative for PE. Her liver function tests are in the normal range. Her LDL was 110, TSH in the normal range. Her nuclear medicine stress test showed reversibility of the anterior wall ischemia. She went through cath and did not require any stent placement. Her ALT is 13, so we started her on Lipitor and patient is taking lovastatin at home, which she will continue the same. She remained stable. No further chest discomfort. Hemodynamically stable, clinically sound enough to go home. DISCHARGE INSTRUCTIONS: Activity as tolerated. Healthy heart diet. Follow up with the PCP in 1 week. TIME SPENT: Discharge time took over 35 minutes. Job ID: [id number] MTDD
[2019-11-12 15:14] LABS: A1 Antitrypsin Phenotype Inter MZ (.); Alpha-1-Antitrypsin 93 mg/dL (101-187)
== END 2019-11-11 14:10 | disposition home or self-care (01) | DRG 287 ==
LOC: ERS 12:56 → 2SW 17:19 → OBSVTOIN 17:19 → 2NO 11-09 21:06
PROVIDERS: ADMIT Family Medicine; ATTEND Family Medicine
PROC: 4A023N7 Measurement of Cardiac Sampling and Pressure, Left Heart, Percutaneous Approach (ICD-10-PCS; principal; 2019-11-10)
PROC: B2111ZZ Fluoroscopy of Multiple Coronary Arteries using Low Osmolar Contrast (ICD-10-PCS; 2019-11-10)
DX: I25.89 Other forms of chronic ischemic heart disease (principal); I25.10 Atherosclerotic heart disease of native coronary artery without angina pectoris; E78.5 Hyperlipidemia, unspecified; F31.9 Bipolar disorder, unspecified; Z20.828 Contact with and (suspected) exposure to other viral communicable diseases; G62.9 Polyneuropathy, unspecified; K21.9 Gastro-esophageal reflux disease without esophagitis; J45.909 Unspecified asthma, uncomplicated; I50.9 Heart failure, unspecified; I11.9 Hypertensive heart disease without heart failure; F17.210 Nicotine dependence, cigarettes, uncomplicated; I44.0 Atrioventricular block, first degree; E87.6 Hypokalemia; E78.00 Pure hypercholesterolemia, unspecified; Z86.718 Personal history of other venous thrombosis and embolism; Z79.01 Long term (current) use of anticoagulants; Z79.899 Other long term (current) drug therapy; Z79.82 Long term (current) use of aspirin; Z88.8 Allergy status to other drugs, medicaments and biological substances
CPT/HCPCS: 36415; 71045; 71275; 78452; 80048; 80053; 80061; 81003; 81025; 82103; 82104; 82550; 82553; 83880; 84443; 84484; 85025; 87635; 93005; 93010; 93017; 93458; 94760; 96372; 99152; A9500; G0378; J1644; J1650; J2001; J2250; J2785; J3010; Q9967; U0003

== ENCOUNTER 2020-01-02 00:37 | Emergency (ER) | payer SELFPAY ==
--- NOTE | 2020-01-02 09:19 | RAD ---
RIGHT ANKLE 3 VIEWS: Date: 01/02/2020 INDICATION: History of right ankle trauma. COMPARISON: None. FINDINGS: There is a small avulsion fracture off the medial malleolus. There is soft tissue swelling surroundin g the ankle site. IMPRESSION: Small medial malleolar avulsion fracture likely at the attachment site of the deep deltoid ligament. POS: BH
--- NOTE | 2020-01-02 10:49 | ULT ---
PRELIMINARY REPORT/[facility]/EMERGENCY AFTER HOURS PROCEDURE: EXAM: US Duplex right Lower Extremity Veins. CLINICAL HISTORY: HX: SWOLLEN,WARM RT CALF. HX OF DVT IN THE PAST. SEE NOTES ON LAST IMAGE. THANKS TECHNIQUE: Real-time ultrasound scan of the veins of the right lower extremity with color Doppler flow, spectral waveform analysis and compression. COMPARISON: None provided. FINDINGS: DEEP VEINS: The common femoral, femoral, and popliteal veins are echolucent and compressible. These vessels demon strate respiratory variation and augmentation. There is normal color Doppler flow throughout. The vis ualized calf veins are also patent. SUPERFICIAL VEINS: The visualized greater saphenous vein is patent. SOFT TISSUES: No popliteal fossa cyst or other abnormalities. IMPRESSION: No deep venous thrombosis in the right lower extremity. ELECTRONICALLY SIGNED BY: Joni Sotelo MD Jan 02, 2020 1:53:22 AM [facility] [employer] This report is intended for review by the ordering physician only, in accordance of law. If you recei ve this report in error, please call [facility] at [phone]. FINAL REPORT EMERGENCY AFTER HOURS RIGHT LOWER EXTREMITY DOPPLER VENOUS ULTRASOUND: INDICATION: Redness and swelling in the right calf. History of previous deep venous thrombosis. TECHNIQUE: Barcenas scale, color Doppler, and vascular duplex with spectral analysis was performed of the deep venou s structures of the right lower extremity. The common femoral vein, superficial femoral vein, proxima l greater saphenous vein, proximal greater profunda vein, popliteal, and posterior tibial veins were assessed. FINDINGS: Normal compression, flow, and augmentation was seen within the deep venous structures of the right lo wer extremity. IMPRESSION: No evidence of deep venous thrombosis within the right lower extremity. POS: ROBER
== END 2020-01-02 03:30 | disposition home or self-care (01) ==
LOC: ERS 00:37
DX: S82.51XA Displaced fracture of medial malleolus of right tibia, initial encounter for closed fracture (principal); L03.115 Cellulitis of right lower limb; J45.909 Unspecified asthma, uncomplicated; M19.90 Unspecified osteoarthritis, unspecified site; I11.0 Hypertensive heart disease with heart failure; I50.9 Heart failure, unspecified; I25.2 Old myocardial infarction; K21.9 Gastro-esophageal reflux disease without esophagitis; E78.5 Hyperlipidemia, unspecified; E78.00 Pure hypercholesterolemia, unspecified; F31.9 Bipolar disorder, unspecified; F20.9 Schizophrenia, unspecified; F41.9 Anxiety disorder, unspecified; F17.210 Nicotine dependence, cigarettes, uncomplicated; Z86.718 Personal history of other venous thrombosis and embolism; Z86.711 Personal history of pulmonary embolism; W19.XXXA Unspecified fall, initial encounter
CPT/HCPCS: 29515

== ENCOUNTER 2020-11-08 12:31 | Outpatient (CLI) | payer OTHER ==
[~2020-11-08 12:31] MED LIST changes: +Iopamidol 370 76% 100 ML VIAL ONE; -Iopamidol-370 76% 500 ML 1 ML ONE
== END 2020-11-08 12:32 | disposition home or self-care (01) ==
LOC: CT 12:31
PROVIDERS: ATTEND Urology
DX: G35 Multiple sclerosis (principal)
CPT/HCPCS: 74178; Q9967

== ENCOUNTER 2020-11-22 12:23 | Outpatient (CLI) | payer OTHER ==
[~2020-11-22 12:23] MED LIST changes: -Iopamidol 370 76% 100 ML VIAL ONE; +Magnevist 469MG/ML 20 ML VIAL ONE
== END 2020-11-22 12:24 | disposition home or self-care (01) ==
LOC: MRI 12:23
PROVIDERS: ATTEND Psychiatry & Neurology Neurology
DX: G35 Multiple sclerosis (principal); M47.814 Spondylosis without myelopathy or radiculopathy, thoracic region; M48.8X9 Other specified spondylopathies, site unspecified; Z98.890 Other specified postprocedural states
CPT/HCPCS: 70553; 72146

== ENCOUNTER 2020-12-27 23:10 | Inpatient (IN) | payer OTHER ==
[~2020-12-27 23:10] MED LIST changes: +Iopamidol-370 76% 500 ML 1 ML ONE; -Magnevist 469MG/ML 20 ML VIAL ONE
[2020-12-28 00:11] LABS: Actual Bicarbonate (HCO3v) 27 mEq/L (22-28); Analyzer IN Cardio ER; Base Excess 0.2 mEq/L (-2.0 to +3.0); Calcium, Ionized (venous) 1.11 mmol/L (1.16-1.32); Chloride (VBG) 90 mmol/L (98-106); Hemoglobin (Hb) 13.4 g/dL (11.7-16.0); Potassium (VBG) 4.37 mmol/L (3.70-5.30); Sodium 128.2 mmol/L (133-146); pH (venous) 7.34 (7.32-7.43)
[2020-12-28 00:25] LABS: Bilirubin Negative (Negative); Blood, Urine Negative (Negative); Clarity Clear (Clear); Glucose, Urine (Dipstick) Greater than 1000 mg/dL (Negative); Ketone, Urine Negative (Negative); Leukocyte Negative Leu/uL (Negative); Nitrite Negative (Negative); Protein, Urine (Dipstick) Negative (Neg-Trace); Specific Gravity, Urine 1.021 (1.002-1.036); Urobilinogen Normal mg/dL (Less than 2)
[2020-12-28 00:29] LABS: Hemoglobin 12.5 g/dL (12.0-16.0); Mean Corpuscular HGB CONC 33.1 g/dL (32.0-36.0); Mean Corpuscular Volume 87.6 fL (78.0-98.0); Mean Platelet Volume 6.9 fL (7.4-10.4); Platelet Count 403 thou/uL (130-400); Red Blood Cell (RBC) Count 4.33 mill/uL (4.20-5.40); White Blood Cell (WBC) Count 20.2 thou/uL (4.8-10.8)
[2020-12-28 00:33] LABS: ALT (SGPT) 17 U/L (8-55); AST (SGOT) 11 U/L (5-34); Albumin 3.7 g/dL (3.5-5.0); Alkaline Phosphatase 160 U/L (40-110); Anion Gap 16 mmol/L (10-20); BUN (Urea Nitrogen) 7 mg/dL (7.0-18.7); Bilirubin, Total 0.2 mg/dL (0.2-1.2); Calc. Creatinine Clearance 0 mL/min (70-130); Calcium 9.7 mg/dL (7.8-10.44); Carbon Dioxide 27 mmol/L (22-29); Chloride 87 mmol/L (98-107); Lipase 24 U/L (8-78); Potassium 4.5 mmol/L (3.5-5.1); Protein, Total 8.7 g/dL (6.0-8.3); Sodium 125 mmol/L (136-145)
[2020-12-28] MEDS ORDERED: Cefepime 2 GM VIAL ONE (00:36)
[2020-12-28 00:37] LABS: Glucose 726 mg/dL (70-105)
[2020-12-28 00:46] LABS: Band 6 % (5-11); Lymphocytes 10 % (21-51); MDiff Complete? YES; Monocytes 4 % (0-10); Neutrophil 80 % (42-75)
[2020-12-28] MEDS ORDERED: Insulin Regular 300 UNITS/3 ML VIAL ONE (00:50)
[2020-12-28] MEDS ORDERED: Vancomycin 1 GM/200 ML BAG ONE (01:57)
[2020-12-28 03:06] LABS: Lactic Acid 2.5 mmol/L (0.5-2.2)
[2020-12-28] MEDS ORDERED: Ondansetron PF 4 MG/2 ML Vial IVP PRN (04:45)
[2020-12-28] MEDS ORDERED: Ondansetron ODT 4 MG TAB SL PRN (04:45)
[2020-12-28] MEDS ORDERED: Acetaminophen 325 MG TAB PO PRN (04:45)
[2020-12-28 04:57] VITALS: BMI 38.8
[2020-12-28] MEDS: Sodium Chloride 0.9% 1,000 ML IV SCH ×2 (05:00→12:38)
[2020-12-28] MEDS ORDERED: Dextrose 5% in Water 1,000 ML IV PRN (05:38)
[2020-12-28] MEDS ORDERED: Dextrose 50% Abboject 50 ML SYRINGE SLOW IVP PRN (05:38)
[2020-12-28] MEDS ORDERED: Ondansetron ODT 4 MG TAB PO PRN (05:38)
[2020-12-28] MEDS: HumaLOG 300 UNITS/3 ML VIAL SC PRN ×4 (06:28→21:21)
[2020-12-28 07:03] LABS: Lactic Acid 2.6 mmol/L (0.5-2.2)
[2020-12-28] MEDS ORDERED: Lantus 1000 UNITS/10 ML VIAL SC SCH ×2 (09:00→13:15)
[2020-12-28] MEDS: Enoxaparin Sodium 40 MG/0.4 ML SYRINGE SC SCH (09:26)
[2020-12-28] MEDS: Morphine 4 MG/ML VIAL SLOW IVP PRN (10:09)
[2020-12-28 10:55] LABS: Lactic Acid 2.6 mmol/L (0.5-2.2)
[2020-12-28 11:47] LABS: SARS-CoV-2 PCR by NAA Not Detected (NotDetected)
[2020-12-28] MEDS: Cefepime 2 GM in Sodium Chloride 0.9% 100 ML IVPB SCH (12:33)
[2020-12-28 13:45] LABS: Sodium 129 mmol/L (136-145)
[2020-12-28] MEDS: Gabapentin 300 MG CAP PO SCH ×2 (14:14→21:19)
[2020-12-28] MEDS: Vancomycin HCl 1.5 GM in Sodium Chloride 0.9% 250 ML 300 ML IVPB SCH (14:56)
[2020-12-28] MEDS: predniSONE 5 MG TAB PO SCH ×2 (14:56→21:19)
[2020-12-28] MEDS ORDERED: Non-Formulary Item 1 EACH (Prednisone [Prednisone] 10 MG Tablet) PO SCH (15:00)
[2020-12-28] MEDS: Ziprasidone 60 MG CAP PO SCH (16:49)
[2020-12-28] MEDS: Simvastatin 5 MG TAB PO SCH (21:19)
[2020-12-28] MEDS: Amitriptyline HCl 100 MG TAB PO SCH (21:31)
[2020-12-29] MEDS: Cefepime 2 GM in Sodium Chloride 0.9% 100 ML IVPB SCH ×3 (00:50→21:52)
[2020-12-29] MEDS: Vancomycin HCl 1.5 GM in Sodium Chloride 0.9% 250 ML 300 ML IVPB SCH ×2 (02:12→13:56)
[2020-12-29] MEDS: HumaLOG 300 UNITS/3 ML VIAL SC PRN ×4 (06:26→21:57)
[2020-12-29 07:00] LABS: #Eosinphils 0.1 thou/uL (0.0-0.7); #Lymphocytes 1.4 thou/uL (1.20-3.40); #Monocytes 0.5 thou/uL (0.11-0.59); %Basophils 0.3 % (0.0-1.0); %Eosinophils 0.5 % (0.0-10.0); %Monocytes 4.6 % (0.0-10.0); %Neutrophils 81.7 % (42.0-75.0); Hemoglobin 10.5 g/dL (12.0-16.0); Mean Corpuscular Hemoglobin 27.8 pg (27.0-31.0); Mean Corpuscular Volume 86.9 fL (78.0-98.0); Mean Platelet Volume 6.6 fL (7.4-10.4); Platelet Count 371 thou/uL (130-400); RBC Distribution Width 12.8 % (11.5-14.5); Red Blood Cell (RBC) Count 3.79 mill/uL (4.20-5.40); White Blood Cell (WBC) Count 11.1 thou/uL (4.8-10.8)
[2020-12-29 07:21] LABS: Anion Gap 13 mmol/L (10-20); BUN (Urea Nitrogen) 5 mg/dL (7.0-18.7); Calc. Creatinine Clearance 174 mL/min (70-130); Calcium 9.4 mg/dL (7.8-10.44); Carbon Dioxide 27 mmol/L (22-29); Chloride 97 mmol/L (98-107); Glucose 299 mg/dL (70-105); Potassium 4.1 mmol/L (3.5-5.1); Sodium 133 mmol/L (136-145)
[2020-12-29] MEDS: Ziprasidone 60 MG CAP PO SCH ×2 (08:24→16:40)
[2020-12-29] MEDS: Gabapentin 300 MG CAP PO SCH ×3 (08:24→21:51)
[2020-12-29] MEDS: Aspirin 81 mg Enteric Coated Tablet PO SCH (08:25)
[2020-12-29] MEDS: Enoxaparin Sodium 40 MG/0.4 ML SYRINGE SC SCH (08:25)
[2020-12-29] MEDS: predniSONE 5 MG TAB PO SCH ×3 (08:25→21:52)
[2020-12-29] MEDS ORDERED: Lantus 1000 UNITS/10 ML VIAL SC SCH ×2 (09:00→22:30)
[2020-12-29] MEDS: Morphine 4 MG/ML VIAL SLOW IVP PRN (12:06)
[2020-12-29 13:31] LABS: Vancomycin, Trough 11.5 ug/mL
[2020-12-29] MEDS: Amitriptyline HCl 100 MG TAB PO SCH (21:51)
[2020-12-29] MEDS: Nystatin Powder 15 GM BOT TOP SCH (21:52)
[2020-12-29] MEDS: Simvastatin 5 MG TAB PO SCH (21:52)
[2020-12-30] MEDS: Vancomycin HCl 1.5 GM in Sodium Chloride 0.9% 250 ML 300 ML IVPB SCH ×2 (02:27→15:00)
[2020-12-30] MEDS: Cefepime 2 GM in Sodium Chloride 0.9% 100 ML IVPB SCH ×3 (05:05→22:08)
[2020-12-30] MEDS: HumaLOG 300 UNITS/3 ML VIAL SC PRN ×4 (05:07→21:29)
[2020-12-30 08:07] LABS: #Eosinphils 0.1 thou/uL (0.0-0.7); #Lymphocytes 1.9 thou/uL (1.20-3.40); #Monocytes 0.5 thou/uL (0.11-0.59); #Neutrophils 10.8 thou/uL (1.40-6.50); %Basophils 0.2 % (0.0-1.0); %Eosinophils 0.7 % (0.0-10.0); %Lymphocytes 14.2 % (21.0-51.0); %Neutrophils 80.9 % (42.0-75.0); Hemoglobin 11.8 g/dL (12.0-16.0); Mean Corpuscular HGB CONC 32.4 g/dL (32.0-36.0); Mean Corpuscular Hemoglobin 28.3 pg (27.0-31.0); Mean Corpuscular Volume 87.5 fL (78.0-98.0); Mean Platelet Volume 6.8 fL (7.4-10.4); Platelet Count 412 thou/uL (130-400); Red Blood Cell (RBC) Count 4.15 mill/uL (4.20-5.40); White Blood Cell (WBC) Count 13.4 thou/uL (4.8-10.8)
[2020-12-30 08:26] LABS: Anion Gap 14 mmol/L (10-20); BUN (Urea Nitrogen) 9 mg/dL (7.0-18.7); Calc. Creatinine Clearance 134 mL/min (70-130); Calcium 10.5 mg/dL (7.8-10.44); Carbon Dioxide 28 mmol/L (22-29); Chloride 98 mmol/L (98-107); Glucose 402 mg/dL (70-105); Magnesium 1.5 mg/dL (1.6-2.6); Phosphorus 3.2 mg/dL (2.3-4.7); Potassium 4.5 mmol/L (3.5-5.1); Sodium 135 mmol/L (136-145)
[2020-12-30 08:28] LABS: Hemoglobin A1c 10.3 % (4.0-6.0)
[2020-12-30] MEDS ORDERED: Folic Acid 1 MG TAB PO SCH (09:00)
[2020-12-30] MEDS ORDERED: Lantus 1000 UNITS/10 ML VIAL SC SCH (09:00)
[2020-12-30] MEDS: Sodium Chloride 0.9% 1,000 ML IV SCH (09:23)
[2020-12-30] MEDS: Enoxaparin Sodium 40 MG/0.4 ML SYRINGE SC SCH (09:23)
[2020-12-30] MEDS: Ascorbic Acid 500 mg Chewable Tablet PO SCH (09:24)
[2020-12-30] MEDS: Metoprolol Tartrate 25 MG TAB PO SCH ×2 (09:24→22:09)
[2020-12-30] MEDS: predniSONE 20 MG TAB PO SCH (09:24)
[2020-12-30] MEDS: Aspirin 81 mg Enteric Coated Tablet PO SCH (09:24)
[2020-12-30] MEDS: Gabapentin 300 MG CAP PO SCH ×3 (09:24→22:08)
[2020-12-30] MEDS: Multivit, Therapeutic 1 TAB PO SCH (09:24)
[2020-12-30] MEDS: Cyanocobalamin (Vitamin B-12) 1,000 MCG TAB PO SCH (09:24)
[2020-12-30] MEDS: Ziprasidone 60 MG CAP PO SCH ×2 (09:27→16:47)
[2020-12-30] MEDS: Nystatin Powder 15 GM BOT TOP SCH ×2 (09:27→22:09)
[2020-12-30] MEDS: Lantus 1000 UNITS/10 ML VIAL SC SCH (09:32)
[2020-12-30] MEDS ORDERED: Cyanocobalamin 1000 MCG/ML VIAL IM SCH (11:00)
[2020-12-30] MEDS ORDERED: Magnesium Sulfate 4 GM in Sodium Chloride 0.9% 250 ML 250 ML IVPB SCH (11:00)
[2020-12-30] MEDS ORDERED: Lorazepam 1 MG TAB PO PRN ×2 (12:07→16:42)
[2020-12-30] MEDS: Folic Acid 1 MG TAB PO SCH (22:08)
[2020-12-30] MEDS: Amitriptyline HCl 100 MG TAB PO SCH (22:08)
[2020-12-30] MEDS: Simvastatin 5 MG TAB PO SCH (22:09)
[2020-12-31] MEDS: Vancomycin HCl 1.5 GM in Sodium Chloride 0.9% 250 ML 300 ML IVPB SCH ×2 (02:00→16:23)
[2020-12-31] MEDS: Sodium Chloride 0.9% 1,000 ML IV SCH ×2 (04:00→23:46)
[2020-12-31] MEDS: Cefepime 2 GM in Sodium Chloride 0.9% 100 ML IVPB SCH ×3 (05:20→20:59)
[2020-12-31] MEDS: HumaLOG 300 UNITS/3 ML VIAL SC PRN ×4 (07:13→21:00)
[2020-12-31] MEDS: Folic Acid 1 MG TAB PO SCH ×2 (09:24→20:59)
[2020-12-31] MEDS: Multivit, Therapeutic 1 TAB PO SCH (09:24)
[2020-12-31] MEDS: Metoprolol Tartrate 25 MG TAB PO SCH ×2 (09:24→20:59)
[2020-12-31] MEDS: predniSONE 20 MG TAB PO SCH (09:24)
[2020-12-31] MEDS: Aspirin 81 mg Enteric Coated Tablet PO SCH (09:24)
[2020-12-31] MEDS: Gabapentin 300 MG CAP PO SCH ×3 (09:25→20:59)
[2020-12-31] MEDS: Ascorbic Acid 500 mg Chewable Tablet PO SCH (09:25)
[2020-12-31] MEDS: Cyanocobalamin (Vitamin B-12) 1,000 MCG TAB PO SCH (09:25)
[2020-12-31] MEDS: Enoxaparin Sodium 40 MG/0.4 ML SYRINGE SC SCH (09:25)
[2020-12-31] MEDS: Ziprasidone 60 MG CAP PO SCH ×2 (09:30→16:23)
[2020-12-31] MEDS: Nystatin Powder 15 GM BOT TOP SCH ×2 (09:31→21:00)
[2020-12-31] MEDS: Lantus 1000 UNITS/10 ML VIAL SC SCH (09:34)
[2020-12-31 15:27] LABS: Vancomycin, Trough 12.2 ug/mL
[2020-12-31] MEDS: Amitriptyline HCl 100 MG TAB PO SCH (20:59)
[2020-12-31] MEDS: Simvastatin 5 MG TAB PO SCH (21:00)
[2021-01-01] MEDS: Vancomycin HCl 1.5 GM in Sodium Chloride 0.9% 250 ML 300 ML IVPB SCH ×2 (01:58→15:40)
[2021-01-01] MEDS: Cefepime 2 GM in Sodium Chloride 0.9% 100 ML IVPB SCH ×3 (05:09→20:33)
[2021-01-01] MEDS: HumaLOG 300 UNITS/3 ML VIAL SC PRN ×4 (06:25→20:35)
[2021-01-01 06:58] LABS: #Eosinphils 0.1 thou/uL (0.0-0.7); #Lymphocytes 2.5 thou/uL (1.20-3.40); #Monocytes 0.6 thou/uL (0.11-0.59); %Basophils 0.3 % (0.0-1.0); %Eosinophils 1.1 % (0.0-10.0); %Lymphocytes 22.1 % (21.0-51.0); %Monocytes 5.3 % (0.0-10.0); %Neutrophils 71.3 % (42.0-75.0); Hemoglobin 10.7 g/dL (12.0-16.0); Mean Corpuscular HGB CONC 31.8 g/dL (32.0-36.0); Mean Corpuscular Volume 87.9 fL (78.0-98.0); Mean Platelet Volume 6.4 fL (7.4-10.4); Platelet Count 444 thou/uL (130-400); RBC Distribution Width 13.2 % (11.5-14.5); Red Blood Cell (RBC) Count 3.83 mill/uL (4.20-5.40); White Blood Cell (WBC) Count 11.2 thou/uL (4.8-10.8)
[2021-01-01] MEDS: Aspirin 81 mg Enteric Coated Tablet PO SCH (08:07)
[2021-01-01] MEDS: Multivit, Therapeutic 1 TAB PO SCH (08:07)
[2021-01-01] MEDS: Folic Acid 1 MG TAB PO SCH ×2 (08:08→20:33)
[2021-01-01] MEDS: Ascorbic Acid 500 mg Chewable Tablet PO SCH (08:08)
[2021-01-01] MEDS: predniSONE 20 MG TAB PO SCH (08:08)
[2021-01-01] MEDS: Cyanocobalamin (Vitamin B-12) 1,000 MCG TAB PO SCH (08:08)
[2021-01-01] MEDS: Metoprolol Tartrate 25 MG TAB PO SCH ×2 (08:09→20:34)
[2021-01-01] MEDS: Gabapentin 300 MG CAP PO SCH ×3 (08:09→20:33)
[2021-01-01] MEDS: Enoxaparin Sodium 40 MG/0.4 ML SYRINGE SC SCH (08:09)
[2021-01-01] MEDS: Ziprasidone 60 MG CAP PO SCH ×2 (08:10→17:43)
[2021-01-01] MEDS: Nystatin Powder 15 GM BOT TOP SCH ×2 (08:10→20:35)
[2021-01-01] MEDS: Lantus 1000 UNITS/10 ML VIAL SC SCH (08:12)
[2021-01-01] MEDS: Sodium Chloride 0.9% 1,000 ML IV SCH (15:41)
[2021-01-01] MEDS: Amitriptyline HCl 100 MG TAB PO SCH (20:33)
[2021-01-01] MEDS: Simvastatin 5 MG TAB PO SCH (20:35)
[2021-01-01] MEDS ORDERED: Lantus 1000 UNITS/10 ML VIAL SC SCH (21:00)
[2021-01-02] MEDS: Vancomycin HCl 1.5 GM in Sodium Chloride 0.9% 250 ML 300 ML IVPB SCH ×2 (01:53→14:26)
[2021-01-02] MEDS: Cefepime 2 GM in Sodium Chloride 0.9% 100 ML IVPB SCH ×2 (05:39→13:53)
[2021-01-02] MEDS: HumaLOG 300 UNITS/3 ML VIAL SC PRN ×2 (05:47→12:50)
[2021-01-02] MEDS: Ziprasidone 60 MG CAP PO SCH (08:22)
[2021-01-02] MEDS: Aspirin 81 mg Enteric Coated Tablet PO SCH (08:22)
[2021-01-02] MEDS: predniSONE 20 MG TAB PO SCH (08:23)
[2021-01-02] MEDS: Cyanocobalamin (Vitamin B-12) 1,000 MCG TAB PO SCH (08:23)
[2021-01-02] MEDS: Gabapentin 300 MG CAP PO SCH (08:23)
[2021-01-02] MEDS: Enoxaparin Sodium 40 MG/0.4 ML SYRINGE SC SCH (08:24)
[2021-01-02] MEDS: Metoprolol Tartrate 25 MG TAB PO SCH (08:24)
[2021-01-02] MEDS: Folic Acid 1 MG TAB PO SCH (08:24)
[2021-01-02] MEDS: Multivit, Therapeutic 1 TAB PO SCH (08:24)
[2021-01-02] MEDS: Ascorbic Acid 500 mg Chewable Tablet PO SCH (08:24)
[2021-01-02] MEDS: Lantus 1000 UNITS/10 ML VIAL SC SCH (08:24)
[2021-01-02] MEDS: Nystatin Powder 15 GM BOT TOP SCH (08:25)
[2021-01-02 15:05] VITALS: BP 150/89; TEMP 98.1
== END 2021-01-02 15:40 | disposition home or self-care (01) | DRG 871 ==
LOC: ERS 23:10 → T4-B 12-28 02:50
PROVIDERS: ADMIT Student in an Organized Health Care Education/Training Program; ATTEND Family Medicine
DX: A41.9 Sepsis, unspecified organism (principal); L89.154 Pressure ulcer of sacral region, stage 4; G95.89 Other specified diseases of spinal cord; G82.20 Paraplegia, unspecified; E87.1 Hypo-osmolality and hyponatremia; N17.9 Acute kidney failure, unspecified; Z20.822 Contact with and (suspected) exposure to COVID-19; R65.20 Severe sepsis without septic shock; I10 Essential (primary) hypertension; E11.65 Type 2 diabetes mellitus with hyperglycemia; E11.40 Type 2 diabetes mellitus with diabetic neuropathy, unspecified; F17.210 Nicotine dependence, cigarettes, uncomplicated; G89.29 Other chronic pain; E53.8 Deficiency of other specified B group vitamins; E66.01 Morbid (severe) obesity due to excess calories; Z88.8 Allergy status to other drugs, medicaments and biological substances; Z79.899 Other long term (current) drug therapy; Z79.84 Long term (current) use of oral hypoglycemic drugs; Z79.4 Long term (current) use of insulin; Z79.52 Long term (current) use of systemic steroids; Z93.3 Colostomy status; Z68.38 Body mass index [BMI] 38.0-38.9, adult; Z74.01 Bed confinement status
CPT/HCPCS: 36415; 36416; 51702; 72142; 72147; 72149; 74177; 80048; 80053; 80202; 81003; 82010; 82607; 82746; 82805; 83036; 83605; 83690; 83735; 84100; 84295; 84484; 85025; 85652; 86140; 87040; 87070; 87086; 87205; 93005; 93970; 96365; 96367; 96375; J0692; J1650; J1815; J2270; J3370; J3420; J3475; J3490; J7050; J7512; Q9967; U0003; U0005

== ENCOUNTER 2021-07-19 11:03 | Inpatient (IN) | payer OTHER ==
[2021-07-19] MEDS ORDERED: Ondansetron PF 4 MG/2 ML Vial ONE (13:04)
[2021-07-19] MEDS ORDERED: Morphine 4 MG/ML VIAL ONE (13:04)
[2021-07-19 14:02] LABS: Bacteria/HPF 4+ HPF (None Seen); Bilirubin Negative (Negative); Blood, Urine 1+ (Negative); Clarity Turbid (Clear); Glucose, Urine (Dipstick) Normal (Negative); Ketone, Urine Negative (Negative); Leukocyte 500 Leu/uL (Negative); Nitrite Negative (Negative); Protein, Urine (Dipstick) 10 mg/dL (Neg-Trace); RBC/HPF 21-50 HPF (0-3); Renal Epithelial 0-3 HPF (None Seen); Specific Gravity, Urine 1.011 (1.002-1.036); Squamous Epithelial None Seen HPF (0-3); Triple Phosphate Crystal 2+ HPF (None Seen); Urobilinogen Normal mg/dL (Less than 2); WBC/HPF 21-50 HPF (0-3); pH, Urine 8.5 (5.0-9.0)
[2021-07-19 14:26] LABS: Hemoglobin 10.6 g/dL (12.0-16.0); Mean Corpuscular HGB CONC 32.2 g/dL (32.0-36.0); Mean Corpuscular Hemoglobin 28.8 pg (27.0-31.0); Mean Corpuscular Volume 89.2 fL (78.0-98.0); Platelet Count 625 thou/uL (130-400); RBC Distribution Width 14.6 % (11.5-14.5); Red Blood Cell (RBC) Count 3.69 mill/uL (4.20-5.40); White Blood Cell (WBC) Count 18.4 thou/uL (4.8-10.8)
[2021-07-19] MEDS ORDERED: Iopamidol-370 76% 500 ML 1 ML ONE (14:31)
[2021-07-19 14:49] LABS: Band 5 % (5-11); Lymphocytes 10 % (21-51); MDiff Complete? YES; Monocytes 3 % (0-10); Neutrophil 81 % (42-75); Platelet Morphology Comment Appears Increased; Polychromasia SLIGHT = 2-3 cells (100X) (0-2/hpf); Reactive Lymphocytes 1 % (0-10); Vacuoles SLIGHT
[2021-07-19 14:56] LABS: ALT (SGPT) 11 U/L (8-55); AST (SGOT) 34 U/L (5-34); Albumin 1.8 g/dL (3.5-5.0); Alkaline Phosphatase 237 U/L (40-110); Anion Gap 12 mmol/L (10-20); BUN (Urea Nitrogen) 4 mg/dL (7.0-18.7); Bilirubin, Total 0.2 mg/dL (0.2-1.2); CK (CPK) 13 U/L (29-168); Calc. Creatinine Clearance 0 mL/min (70-130); Carbon Dioxide 28 mmol/L (22-29); Chloride 96 mmol/L (98-107); Globulin 4.8 g/dL (2.4-3.5); Glucose 85 mg/dL (70-105); Lipase Less than 4 U/L (8-78); Potassium 4.2 mmol/L (3.5-5.1); Protein, Total 6.6 g/dL (6.0-8.3); Sodium 132 mmol/L (136-145)
[2021-07-19] MEDS ORDERED: cefTRIAXone\\ROCEPHIN 2 GM VIAL ONE (14:58)
[2021-07-19] MEDS ORDERED: Vancomycin 1 GM/200 ML BAG ONE (16:35)
[2021-07-19 18:46] LABS: Lactic Acid 2.7 mmol/L (0.5-2.2)
[2021-07-19] MEDS ORDERED: Vancomycin 1.5 GRAM/300 ML BAG 1.5 GM in Premix Bag 1 BAG IVPB SCH (19:00)
[2021-07-19 19:26] LABS: Troponin I Less than 0.010 ng/mL (< 0.028)
[2021-07-19] MEDS ORDERED: Dextrose 5% in Water 1,000 ML IV PRN (20:22)
[2021-07-19] MEDS ORDERED: Insulin Regular 300 UNITS/3 ML VIAL SC PRN ×2 (20:22)
[2021-07-19] MEDS ORDERED: Dextrose 50% Abboject 50 ML SYRINGE SLOW IVP PRN (20:22)
[2021-07-19] MEDS ORDERED: Bisacodyl 5 MG TAB PO PRN (20:22)
[2021-07-19] MEDS ORDERED: Vancomycin HCl 1 GM in Sodium Chloride 0.9% 250 ML 300 ML IVPB SCH (21:00)
[2021-07-19] MEDS: Gabapentin 400 MG CAP PO SCH (22:15)
[2021-07-19] MEDS: Sodium Chloride 0.9% 1,000 ML IV SCH (22:15)
[2021-07-19] MEDS: Ziprasidone 20 MG CAP PO SCH (22:15)
[2021-07-19] MEDS: metroNIDAZOLE 500 MG in Premix Bag 1 BAG IVPB SCH (22:37)
[2021-07-19] MEDS: Cefepime 2 GM in Sodium Chloride 0.9% 100 ML IVPB SCH (22:38)
[2021-07-19] MEDS: Albumin 25% 25 GM/100 ML BOT IVPB SCH (22:43)
[2021-07-19] MEDS: Acetaminophen 325 MG TAB PO PRN (23:37)
[2021-07-19 23:46] LABS: Troponin I Less than 0.010 ng/mL (< 0.028)
[2021-07-20] MEDS: Albumin 25% 25 GM/100 ML BOT IVPB SCH ×5 (00:55→16:51)
[2021-07-20] MEDS: metroNIDAZOLE 500 MG in Premix Bag 1 BAG IVPB SCH (03:29)
[2021-07-20 04:32] LABS: #Eosinphils 0.2 thou/uL (0.0-0.7); #Lymphocytes 1.4 thou/uL (1.20-3.40); #Monocytes 0.5 thou/uL (0.11-0.59); #Neutrophils 5.3 thou/uL (1.40-6.50); %Basophils 0.6 % (0.0-1.0); %Eosinophils 2.9 % (0.0-10.0); %Lymphocytes 18.3 % (21.0-51.0); %Monocytes 7.3 % (0.0-10.0); %Neutrophils 70.9 % (42.0-75.0); Hemoglobin 8.2 g/dL (12.0-16.0); Mean Corpuscular HGB CONC 31.9 g/dL (32.0-36.0); Mean Corpuscular Hemoglobin 29.9 pg (27.0-31.0); Mean Corpuscular Volume 93.8 fL (78.0-98.0); Mean Platelet Volume 5.8 fL (7.4-10.4); Platelet Count 479 thou/uL (130-400); RBC Distribution Width 14.1 % (11.5-14.5); Red Blood Cell (RBC) Count 2.75 mill/uL (4.20-5.40); White Blood Cell (WBC) Count 7.4 thou/uL (4.8-10.8)
[2021-07-20 05:02] LABS: ALT (SGPT) 7 U/L (8-55); AST (SGOT) 14 U/L (5-34); Albumin 1.8 g/dL (3.5-5.0); Alkaline Phosphatase 150 U/L (40-110); Anion Gap 8 mmol/L (10-20); BUN (Urea Nitrogen) 4 mg/dL (7.0-18.7); Bilirubin, Total 0.3 mg/dL (0.2-1.2); Calc. Creatinine Clearance 262 mL/min (70-130); Calcium 7.4 mg/dL (7.8-10.44); Carbon Dioxide 29 mmol/L (22-29); Chloride 105 mmol/L (98-107); Glucose 79 mg/dL (70-105); Potassium 2.7 mmol/L (3.5-5.1); Protein, Total 4.8 g/dL (6.0-8.3); Sodium 139 mmol/L (136-145)
[2021-07-20] MEDS ORDERED: Electrolyte Replacement Protocol 1 EACH FS PRN (05:18)
[2021-07-20] MEDS: Sodium Chloride 0.9% 1,000 ML IV SCH ×4 (05:22→22:38)
[2021-07-20] MEDS: Potassium Chloride 40 MEQ in Sodium Chloride 0.9% 250 ML 250 ML IVPB SCH (05:45)
[2021-07-20] MEDS: Vancomycin 1.5 GRAM/300 ML BAG 1.5 GM in Premix Bag 1 BAG IVPB SCH ×3 (05:50→22:43)
[2021-07-20] MEDS ORDERED: Sodium Chloride 0.9% 1,000 ML IV SCH ×2 (10:30→16:30)
[2021-07-20] MEDS: Folic Acid 1 MG TAB PO SCH (11:21)
[2021-07-20] MEDS: Ferrous Sulfate 325 MG TAB PO SCH ×2 (11:21→16:51)
[2021-07-20] MEDS: Gabapentin 400 MG CAP PO SCH ×3 (11:21→21:05)
[2021-07-20] MEDS: Cefepime 2 GM in Sodium Chloride 0.9% 100 ML IVPB SCH ×2 (11:21→21:04)
[2021-07-20] MEDS: Benztropine 1 MG TAB PO SCH (11:21)
[2021-07-20 13:36] VITALS: BMI 38.1
[2021-07-20] MEDS ORDERED: Ondansetron ODT 4 MG TAB PO PRN (14:00)
[2021-07-20] MEDS: Methocarbamol 500 MG TAB PO SCH ×2 (16:51→21:05)
[2021-07-20] MEDS: HYDROcodone/Acetaminophen 5/325 mg Tablet PO PRN (19:38)
[2021-07-20] MEDS: Amitriptyline HCl 100 MG TAB PO SCH (21:05)
[2021-07-20] MEDS: Apixaban 5 MG TAB PO SCH (21:06)
[2021-07-20] MEDS: Ziprasidone 20 MG CAP PO SCH (21:07)
[2021-07-20 21:39] LABS: Vancomycin, Trough 29.4 ug/mL
[2021-07-21] MEDS: Vancomycin 1.5 GRAM/300 ML BAG 1.5 GM in Premix Bag 1 BAG IVPB SCH ×3 (01:20→18:25)
[2021-07-21] MEDS: HYDROcodone/Acetaminophen 5/325 mg Tablet PO PRN (03:48)
[2021-07-21] MEDS: Sodium Chloride 0.9% 1,000 ML IV SCH ×3 (03:51→16:31)
[2021-07-21 04:53] LABS: #Eosinphils 0.3 thou/uL (0.0-0.7); #Lymphocytes 1.6 thou/uL (1.20-3.40); #Monocytes 0.5 thou/uL (0.11-0.59); #Neutrophils 5.2 thou/uL (1.40-6.50); %Basophils 0.4 % (0.0-1.0); %Eosinophils 4.1 % (0.0-10.0); %Lymphocytes 20.6 % (21.0-51.0); %Monocytes 6.6 % (0.0-10.0); %Neutrophils 68.3 % (42.0-75.0); Hemoglobin 8.9 g/dL (12.0-16.0); Mean Corpuscular HGB CONC 30.9 g/dL (32.0-36.0); Mean Corpuscular Volume 93.9 fL (78.0-98.0); Mean Platelet Volume 6.1 fL (7.4-10.4); Platelet Count 508 thou/uL (130-400); RBC Distribution Width 14.3 % (11.5-14.5); Red Blood Cell (RBC) Count 3.06 mill/uL (4.20-5.40); White Blood Cell (WBC) Count 7.6 thou/uL (4.8-10.8)
[2021-07-21] MEDS: Potassium Chloride 40 MEQ in Sodium Chloride 0.9% 250 ML 250 ML IVPB SCH (05:10)
[2021-07-21 05:20] LABS: ALT (SGPT) 11 U/L (8-55); AST (SGOT) 31 U/L (5-34); Albumin 2.8 g/dL (3.5-5.0); Alkaline Phosphatase 179 U/L (40-110); Anion Gap 12 mmol/L (10-20); BUN (Urea Nitrogen) Less than 4 mg/dL (7.0-18.7); Bilirubin, Total 0.3 mg/dL (0.2-1.2); Calc. Creatinine Clearance 235 mL/min (70-130); Calcium 7.7 mg/dL (7.8-10.44); Carbon Dioxide 23 mmol/L (22-29); Chloride 109 mmol/L (98-107); Globulin 2.8 g/dL (2.4-3.5); Glucose 108 mg/dL (70-105); Protein, Total 5.6 g/dL (6.0-8.3); Sodium 141 mmol/L (136-145)
[2021-07-21 05:31] LABS: Potassium 2.9 mmol/L (3.5-5.1)
[2021-07-21 06:06] LABS: Magnesium 1.2 mg/dL (1.6-2.6)
[2021-07-21] MEDS ORDERED: Magnesium Sulfate In Water 4 GM in Premix Bag 1 BAG IVPB SCH (06:30)
[2021-07-21] MEDS: Ascorbic Acid 500 mg Chewable Tablet PO SCH (08:18)
[2021-07-21] MEDS: Methocarbamol 500 MG TAB PO SCH ×4 (08:18→20:52)
[2021-07-21] MEDS: Folic Acid 1 MG TAB PO SCH (08:18)
[2021-07-21] MEDS: Benztropine 1 MG TAB PO SCH (08:19)
[2021-07-21] MEDS: Ferrous Sulfate 325 MG TAB PO SCH ×2 (08:20→16:31)
[2021-07-21] MEDS: Apixaban 5 MG TAB PO SCH ×2 (08:20→20:50)
[2021-07-21] MEDS: Gabapentin 400 MG CAP PO SCH ×3 (08:20→20:50)
[2021-07-21] MEDS: Cefepime 2 GM in Sodium Chloride 0.9% 100 ML IVPB SCH ×2 (08:20→20:49)
[2021-07-21] MEDS ORDERED: Potassium Chloride 40 MEQ in Sodium Chloride 0.9% 250 ML 250 ML IVPB SCH (09:30)
[2021-07-21] MEDS ORDERED: Ketorolac Tromethamine 30 MG/ML VIAL IVP SCH (16:15)
[2021-07-21 18:04] LABS: Vancomycin, Trough 32.4 ug/mL
[2021-07-21] MEDS: Ondansetron PF 4 MG/2 ML Vial IVP PRN (20:38)
[2021-07-21] MEDS: Ketorolac Tromethamine 30 MG/ML VIAL IVP PRN (20:39)
[2021-07-21] MEDS: Amitriptyline HCl 100 MG TAB PO SCH (20:51)
[2021-07-21] MEDS: Ziprasidone 20 MG CAP PO SCH (20:56)
[2021-07-22] MEDS: HYDROcodone/Acetaminophen 5/325 mg Tablet PO PRN ×2 (00:19→23:53)
[2021-07-22] MEDS: Zolpidem Tartrate 5 MG TAB PO PRN ×2 (00:19→21:48)
[2021-07-22] MEDS: Sodium Chloride 0.9% 1,000 ML IV SCH ×3 (00:30→19:32)
[2021-07-22 07:49] LABS: #Eosinphils 0.3 thou/uL (0.0-0.7); #Lymphocytes 1.9 thou/uL (1.20-3.40); #Monocytes 0.5 thou/uL (0.11-0.59); #Neutrophils 3.8 thou/uL (1.40-6.50); %Basophils 0.2 % (0.0-1.0); %Eosinophils 4.8 % (0.0-10.0); %Lymphocytes 29.5 % (21.0-51.0); %Neutrophils 58.4 % (42.0-75.0); Hemoglobin 8.6 g/dL (12.0-16.0); Mean Corpuscular HGB CONC 30.4 g/dL (32.0-36.0); Mean Corpuscular Hemoglobin 28.6 pg (27.0-31.0); Mean Corpuscular Volume 94.1 fL (78.0-98.0); Platelet Count 546 thou/uL (130-400); RBC Distribution Width 14.3 % (11.5-14.5); Red Blood Cell (RBC) Count 2.99 mill/uL (4.20-5.40); White Blood Cell (WBC) Count 6.5 thou/uL (4.8-10.8)
[2021-07-22 08:09] LABS: ALT (SGPT) 9 U/L (8-55); AST (SGOT) 20 U/L (5-34); Albumin 2.2 g/dL (3.5-5.0); Alkaline Phosphatase 158 U/L (40-110); Anion Gap 9 mmol/L (10-20); BUN (Urea Nitrogen) Less than 4 mg/dL (7.0-18.7); Bilirubin, Total 0.2 mg/dL (0.2-1.2); Calc. Creatinine Clearance 252 mL/min (70-130); Calcium 7.3 mg/dL (7.8-10.44); Carbon Dioxide 22 mmol/L (22-29); Chloride 113 mmol/L (98-107); Globulin 2.6 g/dL (2.4-3.5); Glucose 68 mg/dL (70-105); Magnesium 1.9 mg/dL (1.6-2.6); Potassium 3.4 mmol/L (3.5-5.1); Protein, Total 4.8 g/dL (6.0-8.3); Sodium 141 mmol/L (136-145)
[2021-07-22] MEDS: Cefepime 2 GM in Sodium Chloride 0.9% 100 ML IVPB SCH ×2 (09:03→21:41)
[2021-07-22] MEDS: Benztropine 1 MG TAB PO SCH (09:05)
[2021-07-22] MEDS: Gabapentin 400 MG CAP PO SCH ×3 (09:05→19:33)
[2021-07-22] MEDS: Apixaban 5 MG TAB PO SCH ×2 (09:05→19:33)
[2021-07-22] MEDS: Folic Acid 1 MG TAB PO SCH (09:05)
[2021-07-22] MEDS: Ferrous Sulfate 325 MG TAB PO SCH ×2 (09:06→17:25)
[2021-07-22] MEDS: Methocarbamol 500 MG TAB PO SCH ×4 (09:06→21:42)
[2021-07-22] MEDS: Ascorbic Acid 500 mg Chewable Tablet PO SCH (09:06)
[2021-07-22] MEDS: Ketorolac Tromethamine 30 MG/ML VIAL IVP PRN ×2 (09:27→21:47)
[2021-07-22] MEDS ORDERED: Potassium Chloride 20 MEQ TAB PO SCH (12:45)
[2021-07-22] MEDS ORDERED: Magnesium 2 GM/50 ML(in water) 2 GM in Premix Bag 1 BAG IVPB SCH (12:45)
[2021-07-22 17:59] LABS: Vancomycin, Trough 12.2 ug/mL
[2021-07-22] MEDS ORDERED: VANCOMYCIN 1.25 GM/250 ML BAG 1.25 GM in Premix Bag 1 BAG IVPB SCH (19:00)
[2021-07-22] MEDS: VANCOMYCIN 1.25 GM/250 ML BAG 1.25 GM in Premix Bag 1 BAG IVPB SCH (19:32)
[2021-07-22] MEDS: Amitriptyline HCl 100 MG TAB PO SCH (19:32)
[2021-07-22] MEDS: Ziprasidone 20 MG CAP PO SCH (21:41)
[2021-07-23] MEDS: Sodium Chloride 0.9% 1,000 ML IV SCH ×3 (02:04→16:39)
[2021-07-23] MEDS: VANCOMYCIN 1.25 GM/250 ML BAG 1.25 GM in Premix Bag 1 BAG IVPB SCH ×2 (06:16→19:37)
[2021-07-23] MEDS: Ketorolac Tromethamine 30 MG/ML VIAL IVP PRN ×2 (06:18→19:37)
[2021-07-23 07:00] LABS: Anion Gap 11 mmol/L (10-20); BUN (Urea Nitrogen) Less than 4 mg/dL (7.0-18.7); Calc. Creatinine Clearance 225 mL/min (70-130); Calcium 7.8 mg/dL (7.8-10.44); Carbon Dioxide 20 mmol/L (22-29); Chloride 115 mmol/L (98-107); Glucose 90 mg/dL (70-105); Potassium 4.1 mmol/L (3.5-5.1); Sodium 142 mmol/L (136-145)
[2021-07-23 07:14] LABS: #Eosinphils 0.3 thou/uL (0.0-0.7); #Monocytes 0.3 thou/uL (0.11-0.59); #Neutrophils 3.3 thou/uL (1.40-6.50); %Basophils 0.4 % (0.0-1.0); %Eosinophils 4.5 % (0.0-10.0); %Lymphocytes 34.1 % (21.0-51.0); %Monocytes 5.7 % (0.0-10.0); %Neutrophils 55.3 % (42.0-75.0); Hemoglobin 9.8 g/dL (12.0-16.0); Mean Corpuscular HGB CONC 30.7 g/dL (32.0-36.0); Mean Corpuscular Hemoglobin 28.7 pg (27.0-31.0); Mean Corpuscular Volume 93.7 fL (78.0-98.0); Mean Platelet Volume 6.6 fL (7.4-10.4); Platelet Count 554 thou/uL (130-400); RBC Distribution Width 14.6 % (11.5-14.5); Red Blood Cell (RBC) Count 3.43 mill/uL (4.20-5.40); White Blood Cell (WBC) Count 5.9 thou/uL (4.8-10.8)
[2021-07-23] MEDS: Folic Acid 1 MG TAB PO SCH (07:49)
[2021-07-23] MEDS: Benztropine 1 MG TAB PO SCH (07:49)
[2021-07-23] MEDS: Cefepime 2 GM in Sodium Chloride 0.9% 100 ML IVPB SCH ×2 (07:49→19:37)
[2021-07-23] MEDS: Gabapentin 400 MG CAP PO SCH ×3 (07:49→19:38)
[2021-07-23] MEDS: Ascorbic Acid 500 mg Chewable Tablet PO SCH (07:49)
[2021-07-23] MEDS: Ferrous Sulfate 325 MG TAB PO SCH ×2 (07:50→15:56)
[2021-07-23] MEDS: Apixaban 5 MG TAB PO SCH ×2 (07:50→19:38)
[2021-07-23] MEDS: Methocarbamol 500 MG TAB PO SCH ×4 (07:51→19:38)
[2021-07-23] MEDS ORDERED: Magnesium 2 GM/50 ML(in water) 2 GM in Premix Bag 1 BAG IVPB SCH (09:00)
[2021-07-23] MEDS ORDERED: Saccharomyces boulardii 250 MG CAP PO SCH (09:30)
[2021-07-23] MEDS: Metoprolol Tartrate 25 MG TAB PO SCH ×2 (10:42→21:22)
[2021-07-23] MEDS: Famotidine/PF 20 mg/2ml Vial SLOW IVP SCH ×2 (10:42→21:22)
[2021-07-23] MEDS: Amitriptyline HCl 100 MG TAB PO SCH (19:38)
[2021-07-23] MEDS: Simvastatin 5 MG TAB PO SCH (19:38)
[2021-07-23] MEDS: Ondansetron PF 4 MG/2 ML Vial IVP PRN (19:38)
[2021-07-23] MEDS: Ziprasidone 20 MG CAP PO SCH (21:22)
[2021-07-23] MEDS: Acetaminophen 325 MG TAB PO PRN (22:14)
[2021-07-23] MEDS: HYDROcodone/Acetaminophen 5/325 mg Tablet PO PRN (23:38)
[2021-07-24] MEDS: Zolpidem Tartrate 5 MG TAB PO PRN (00:24)
[2021-07-24] MEDS: Sodium Chloride 0.9% 1,000 ML IV SCH ×2 (02:52→08:33)
[2021-07-24 07:10] LABS: Vancomycin, Trough 19.5 ug/mL
[2021-07-24] MEDS: Apixaban 5 MG TAB PO SCH ×2 (08:29→21:42)
[2021-07-24] MEDS: Benztropine 1 MG TAB PO SCH (08:29)
[2021-07-24] MEDS: Methocarbamol 500 MG TAB PO SCH ×4 (08:29→21:41)
[2021-07-24] MEDS: Gabapentin 400 MG CAP PO SCH ×3 (08:29→21:42)
[2021-07-24] MEDS: Ferrous Sulfate 325 MG TAB PO SCH ×2 (08:30→17:04)
[2021-07-24] MEDS: Metoprolol Tartrate 25 MG TAB PO SCH ×2 (08:30→21:43)
[2021-07-24] MEDS: Ascorbic Acid 500 mg Chewable Tablet PO SCH (08:30)
[2021-07-24] MEDS: Folic Acid 1 MG TAB PO SCH (08:30)
[2021-07-24] MEDS: Saccharomyces boulardii 250 MG CAP PO SCH (08:30)
[2021-07-24] MEDS: VANCOMYCIN 1.25 GM/250 ML BAG 1.25 GM in Premix Bag 1 BAG IVPB SCH ×2 (08:31→18:37)
[2021-07-24] MEDS: Cefepime 2 GM in Sodium Chloride 0.9% 100 ML IVPB SCH (08:31)
[2021-07-24] MEDS: Famotidine/PF 20 mg/2ml Vial SLOW IVP SCH (08:31)
[2021-07-24] MEDS ORDERED: Magnesium 2 GM/50 ML(in water) 2 GM in Premix Bag 1 BAG IVPB SCH (09:00)
[2021-07-24] MEDS ORDERED: Furosemide 40 MG/4 ML VIAL SLOW IVP SCH (11:30)
[2021-07-24] MEDS ORDERED: Ondansetron ODT 4 MG TAB PO SCH (21:30)
[2021-07-24] MEDS: Amitriptyline HCl 100 MG TAB PO SCH (21:41)
[2021-07-24] MEDS: Simvastatin 5 MG TAB PO SCH (21:42)
[2021-07-24] MEDS: Ziprasidone 20 MG CAP PO SCH (21:42)
[2021-07-25] MEDS: Cefepime 2 GM in Sodium Chloride 0.9% 100 ML IVPB SCH ×3 (00:06→12:46)
[2021-07-25] MEDS: Ketorolac Tromethamine 30 MG/ML VIAL IVP PRN (00:11)
[2021-07-25] MEDS: Famotidine 40 MG/4 ML VIAL SLOW IVP SCH ×2 (00:12→09:24)
[2021-07-25] MEDS: VANCOMYCIN 1.25 GM/250 ML BAG 1.25 GM in Premix Bag 1 BAG IVPB SCH ×2 (02:04→13:08)
[2021-07-25] MEDS: HYDROcodone/Acetaminophen 5/325 mg Tablet PO PRN (03:13)
[2021-07-25 07:30] LABS: Hemoglobin 8.3 g/dL (12.0-16.0); Mean Corpuscular HGB CONC 31.5 g/dL (32.0-36.0); Mean Corpuscular Hemoglobin 29.3 pg (27.0-31.0); Mean Corpuscular Volume 92.8 fL (78.0-98.0); Mean Platelet Volume 6.2 fL (7.4-10.4); Platelet Count 741 thou/uL (130-400); RBC Distribution Width 14.8 % (11.5-14.5); Red Blood Cell (RBC) Count 2.84 mill/uL (4.20-5.40)
[2021-07-25 07:36] LABS: Anion Gap 11 mmol/L (10-20); BUN (Urea Nitrogen) Less than 4 mg/dL (7.0-18.7); CRP (Inflammatory) 3.57 mg/dL (= or < 0.5); Calc. Creatinine Clearance 258 mL/min (70-130); Calcium 7.7 mg/dL (7.8-10.44); Carbon Dioxide 22 mmol/L (22-29); Chloride 111 mmol/L (98-107); Glucose 84 mg/dL (70-105); Sodium 140 mmol/L (136-145)
[2021-07-25] MEDS ORDERED: Furosemide 20 MG TAB PO SCH (09:00)
[2021-07-25] MEDS: Ascorbic Acid 500 mg Chewable Tablet PO SCH (09:23)
[2021-07-25] MEDS: Gabapentin 400 MG CAP PO SCH ×2 (09:23→14:10)
[2021-07-25] MEDS: Benztropine 1 MG TAB PO SCH (09:23)
[2021-07-25] MEDS: Saccharomyces boulardii 250 MG CAP PO SCH (09:23)
[2021-07-25] MEDS: Folic Acid 1 MG TAB PO SCH (09:23)
[2021-07-25] MEDS: Ferrous Sulfate 325 MG TAB PO SCH ×2 (09:23→16:51)
[2021-07-25] MEDS: Metoprolol Tartrate 25 MG TAB PO SCH (09:24)
[2021-07-25] MEDS: Methocarbamol 500 MG TAB PO SCH ×3 (09:24→16:51)
[2021-07-25] MEDS: Apixaban 5 MG TAB PO SCH (09:27)
[2021-07-25] MEDS ORDERED: Fioricet 325/50/40 mg Tablet PO PRN (10:48)
[2021-07-25] MEDS ORDERED: Fioricet 325/50/40 mg Tablet PO SCH (11:00)
[2021-07-25 11:25] LABS: Band 2 % (5-11); Eosinophils 5 % (0-10); Hypochromia SLIGHT = 6-15 cells (100X) (0-5/hpf); Lymphocytes 28 % (21-51); MDiff Complete? YES; Monocytes 7 % (0-10); Neutrophil 58 % (42-75); Platelet Morphology Comment Appears Increased; Polychromasia SLIGHT = 2-3 cells (100X) (0-2/hpf)
[2021-07-25 14:41] LABS: Vancomycin, Trough 36.6 ug/mL
[2021-07-25 16:42] VITALS: BP 117/78; TEMP 97.5
== END 2021-07-25 17:09 | DRG 871 ==
LOC: ERS 11:03 → ERHOLD 16:22 → 2NO 21:27 → T4-B 07-21 15:41
PROVIDERS: ADMIT Internal Medicine; ATTEND Family Medicine
DX: A41.9 Sepsis, unspecified organism (principal); L89.154 Pressure ulcer of sacral region, stage 4; R65.21 Severe sepsis with septic shock; G93.41 Metabolic encephalopathy; G82.20 Paraplegia, unspecified; Z68.41 Body mass index [BMI] 40.0-44.9, adult; M46.28 Osteomyelitis of vertebra, sacral and sacrococcygeal region; N39.0 Urinary tract infection, site not specified; E87.1 Hypo-osmolality and hyponatremia; Z20.822 Contact with and (suspected) exposure to COVID-19; I10 Essential (primary) hypertension; L97.529 Non-pressure chronic ulcer of other part of left foot with unspecified severity; E11.621 Type 2 diabetes mellitus with foot ulcer; L89.622 Pressure ulcer of left heel, stage 2; K21.9 Gastro-esophageal reflux disease without esophagitis; E66.01 Morbid (severe) obesity due to excess calories; F25.0 Schizoaffective disorder, bipolar type; F17.210 Nicotine dependence, cigarettes, uncomplicated; N31.9 Neuromuscular dysfunction of bladder, unspecified; E11.69 Type 2 diabetes mellitus with other specified complication; Z79.899 Other long term (current) drug therapy; Z86.718 Personal history of other venous thrombosis and embolism; Z79.4 Long term (current) use of insulin; Z88.8 Allergy status to other drugs, medicaments and biological substances; Z93.2 Ileostomy status; Z89.412 Acquired absence of left great toe; Z89.422 Acquired absence of other left toe(s)
CPT/HCPCS: 36415; 36416; 74177; 80048; 80053; 80202; 81003; 81015; 82550; 83605; 83690; 83735; 84484; 85025; 85652; 86140; 87040; 87086; 96361; 96365; 96375; J0692; J0696; J1885; J1940; J2270; J2405; J3370; J3475; J3480; J3490; J7050; P9047; Q0162; Q9967; S0028; U0003; U0005

== ENCOUNTER 2021-12-23 17:37 | Inpatient (IN) | payer OTHER ==
[2021-12-23 19:39] VITALS: BMI 37.8
[2021-12-23] MEDS ORDERED: Ondansetron ODT 4 MG TAB PO PRN (19:40)
[2021-12-23] MEDS ORDERED: Ondansetron PF 4 MG/2 ML Vial IVP PRN (19:40)
[2021-12-23] MEDS ORDERED: Dextrose 5% in Water 1,000 ML IV PRN (20:06)
[2021-12-23] MEDS ORDERED: Insulin Regular 300 UNITS/3 ML VIAL SC PRN ×2 (20:06)
[2021-12-23] MEDS ORDERED: Dextrose 50% Abboject 50 ML SYRINGE SLOW IVP PRN (20:06)
[2021-12-23 20:58] LABS: Anion Gap 12 mmol/L (10-20); BUN (Urea Nitrogen) Less than 4 mg/dL (7.0-18.7); Calc. Creatinine Clearance 229 mL/min (70-130); Calcium 7.3 mg/dL (7.8-10.44); Carbon Dioxide 25 mmol/L (22-29); Chloride 101 mmol/L (98-107); Estimated GFR 117; Glucose 103 mg/dL (70-105); Magnesium 1.5 mg/dL (1.6-2.6); Phosphorus 2.5 mg/dL (2.3-4.7); Potassium 3.8 mmol/L (3.5-5.1); Sodium 134 mmol/L (136-145)
[2021-12-23] MEDS: Cefepime 1 GM in Sodium Chloride 0.9% 100 ML IVPB SCH (21:30)
[2021-12-23] MEDS ORDERED: VANCOMYCIN 1.75 GM/500 ML BAG 1.75 GM in Premix Bag 1 BAG IVPB SCH (22:00)
[2021-12-23] MEDS ORDERED: Electrolyte Replacement Protocol 1 EACH FS SCH (23:30)
[2021-12-23] MEDS ORDERED: Magnesium 2 GM/50 ML(in water) 2 GM in Premix Bag 1 BAG IVPB SCH (23:59)
[2021-12-24] MEDS: Acetaminophen 325 MG TAB PO PRN ×2 (00:42→08:40)
[2021-12-24 04:43] LABS: #Basophils 0.1 thou/uL (0.0-0.2); #Eosinphils 0.1 thou/uL (0.0-0.7); #Lymphocytes 2.9 thou/uL (1.20-3.40); #Monocytes 0.4 thou/uL (0.11-0.59); #Neutrophils 6.4 thou/uL (1.40-6.50); %Basophils 0.6 % (0.0-1.0); %Eosinophils 0.9 % (0.0-10.0); %Lymphocytes 29.2 % (21.0-51.0); %Monocytes 4.4 % (0.0-10.0); Hemoglobin 8.1 g/dL (12.0-16.0); Mean Corpuscular Volume 93.6 fl (78.0-98.0); Mean Platelet Volume 6.3 fL (7.4-10.4); Platelet Count 588 thou/uL (130-400); RBC Distribution Width 12.8 % (11.5-14.5); White Blood Cell (WBC) Count 9.8 thou/uL (4.8-10.8)
[2021-12-24 05:07] LABS: Anion Gap 11 mmol/L (10-20); BUN (Urea Nitrogen) Less than 4 mg/dL (7.0-18.7); Calc. Creatinine Clearance 250 mL/min (70-130); Calcium 7.4 mg/dL (7.8-10.44); Carbon Dioxide 25 mmol/L (22-29); Chloride 101 mmol/L (98-107); Estimated GFR 119; Glucose 78 mg/dL (70-105); Phosphorus 2.6 mg/dL (2.3-4.7); Potassium 3.6 mmol/L (3.5-5.1); Sodium 133 mmol/L (136-145)
[2021-12-24] MEDS: Vancomycin 1.5 GRAM/300 ML BAG 1.5 GM in Premix Bag 1 BAG IVPB SCH ×3 (05:54→22:10)
[2021-12-24] MEDS ORDERED: Magnesium 2 GM/50 ML(in water) 2 GM in Premix Bag 1 BAG IVPB SCH (08:00)
[2021-12-24] MEDS: Amlodipine 10 MG TAB PO SCH (08:41)
[2021-12-24] MEDS: Ziprasidone 20 MG CAP PO SCH (08:41)
[2021-12-24] MEDS: Gabapentin 400 MG CAP PO SCH ×3 (08:42→20:48)
[2021-12-24] MEDS: Ferrous Sulfate 325 MG TAB PO SCH ×2 (08:42→18:40)
[2021-12-24] MEDS: Apixaban 5 MG TAB PO SCH ×2 (08:42→20:48)
[2021-12-24] MEDS: Loratadine 10 MG TAB PO SCH (08:42)
[2021-12-24] MEDS: Ascorbic Acid 500 mg Chewable Tablet PO SCH (08:42)
[2021-12-24] MEDS: Metoprolol Tartrate 25 MG TAB PO SCH ×2 (08:42→20:48)
[2021-12-24] MEDS: Folic Acid 1 MG TAB PO SCH (08:42)
[2021-12-24] MEDS ORDERED: GLUTAMINE PO SCH (09:00)
[2021-12-24] MEDS ORDERED: FLU VACC QS2022-23(6MOS UP)/PF 60 MCG/0.5 ML SYRINGE IM ONE (09:00)
[2021-12-24] MEDS ORDERED: ARGININE PO SCH (09:00)
[2021-12-24] MEDS ORDERED: [UNRECOGNIZED DRUG - OTHER] PO SCH (09:00)
[2021-12-24] MEDS: Cefepime 1 GM in Sodium Chloride 0.9% 100 ML IVPB SCH ×2 (10:02→20:49)
[2021-12-24] MEDS: Simvastatin 5 MG TAB PO SCH (20:48)
[2021-12-24] MEDS: HYDROcodone/Acetaminophen 5/325 mg Tablet PO PRN (20:50)
[2021-12-24] MEDS ORDERED: Amitriptyline HCl 100 MG TAB PO SCH (21:00)
[2021-12-24] MEDS ORDERED: Benztropine 1 MG TAB PO SCH (21:00)
[2021-12-25 04:47] LABS: #Eosinphils 0.1 thou/uL (0.0-0.7); #Lymphocytes 2.2 thou/uL (1.20-3.40); #Monocytes 0.5 thou/uL (0.11-0.59); #Neutrophils 4.6 thou/uL (1.40-6.50); %Basophils 0.6 % (0.0-1.0); %Eosinophils 1.8 % (0.0-10.0); %Lymphocytes 29.3 % (21.0-51.0); %Neutrophils 62.4 % (42.0-75.0); Hemoglobin 9.7 g/dL (12.0-16.0); Mean Corpuscular HGB CONC 31.2 g/dL (32.0-36.0); Mean Corpuscular Hemoglobin 28.9 pg (27.0-31.0); Mean Corpuscular Volume 92.6 fl (78.0-98.0); Mean Platelet Volume 6.2 fL (7.4-10.4); Platelet Count 509 thou/uL (130-400); RBC Distribution Width 12.9 % (11.5-14.5); Red Blood Cell (RBC) Count 3.37 mill/uL (4.20-5.40); White Blood Cell (WBC) Count 7.4 thou/uL (4.8-10.8)
[2021-12-25 05:10] LABS: Anion Gap 11 mmol/L (10-20); BUN (Urea Nitrogen) Less than 4 mg/dL (7.0-18.7); Calc. Creatinine Clearance 234 mL/min (70-130); Calcium 7.7 mg/dL (7.8-10.44); Carbon Dioxide 23 mmol/L (22-29); Chloride 103 mmol/L (98-107); Estimated GFR 117; Glucose 75 mg/dL (70-105); Magnesium 2.1 mg/dL (1.6-2.6); Phosphorus 2.5 mg/dL (2.3-4.7); Potassium 3.7 mmol/L (3.5-5.1); Sodium 133 mmol/L (136-145)
[2021-12-25] MEDS: Vancomycin 1.5 GRAM/300 ML BAG 1.5 GM in Premix Bag 1 BAG IVPB SCH (05:19)
[2021-12-25] MEDS: HYDROcodone/Acetaminophen 5/325 mg Tablet PO PRN ×2 (06:33→12:53)
[2021-12-25] MEDS: Cefepime 1 GM in Sodium Chloride 0.9% 100 ML IVPB SCH ×2 (09:45→21:52)
[2021-12-25] MEDS: Gabapentin 400 MG CAP PO SCH ×2 (09:47→16:57)
[2021-12-25] MEDS: Amlodipine 10 MG TAB PO SCH (09:47)
[2021-12-25] MEDS: Apixaban 5 MG TAB PO SCH ×2 (09:47→21:52)
[2021-12-25] MEDS: Ferrous Sulfate 325 MG TAB PO SCH ×2 (09:48→16:37)
[2021-12-25] MEDS: Loratadine 10 MG TAB PO SCH (09:48)
[2021-12-25] MEDS: Metoprolol Tartrate 25 MG TAB PO SCH ×2 (09:48→21:52)
[2021-12-25] MEDS: Folic Acid 1 MG TAB PO SCH (09:49)
[2021-12-25] MEDS: Ascorbic Acid 500 mg Chewable Tablet PO SCH (09:49)
[2021-12-25] MEDS: Ziprasidone 20 MG CAP PO SCH (09:50)
[2021-12-25 13:50] LABS: Vancomycin, Trough 48.1 ug/mL
[2021-12-25] MEDS: Gabapentin 100 MG CAP PO SCH (21:52)
[2021-12-25] MEDS: Amitriptyline HCl 25 MG TAB PO SCH (21:52)
[2021-12-25] MEDS: Simvastatin 5 MG TAB PO SCH (21:52)
[2021-12-26 04:51] LABS: #Eosinphils 0.1 thou/uL (0.0-0.7); #Lymphocytes 2.7 thou/uL (1.20-3.40); #Monocytes 0.4 thou/uL (0.11-0.59); %Basophils 0.6 % (0.0-1.0); %Eosinophils 1.6 % (0.0-10.0); %Monocytes 5.6 % (0.0-10.0); %Neutrophils 55.1 % (42.0-75.0); Hemoglobin 6.7 g/dL (12.0-16.0); Mean Corpuscular HGB CONC 30.7 g/dL (32.0-36.0); Mean Corpuscular Hemoglobin 28.9 pg (27.0-31.0); Mean Corpuscular Volume 94.1 fl (78.0-98.0); Mean Platelet Volume 6.2 fL (7.4-10.4); Platelet Count 568 thou/uL (130-400); RBC Distribution Width 12.9 % (11.5-14.5); Red Blood Cell (RBC) Count 2.32 mill/uL (4.20-5.40); White Blood Cell (WBC) Count 7.3 thou/uL (4.8-10.8)
[2021-12-26] MEDS: Acetaminophen 325 MG TAB PO PRN (05:51)
[2021-12-26] MEDS ORDERED: Cepastat Lozenges 1 LOZ PO PRN (06:05)
[2021-12-26] MEDS: Amlodipine 10 MG TAB PO SCH (09:00)
[2021-12-26] MEDS: Ascorbic Acid 500 mg Chewable Tablet PO SCH (09:26)
[2021-12-26] MEDS: Cefepime 1 GM in Sodium Chloride 0.9% 100 ML IVPB SCH ×2 (09:26→21:18)
[2021-12-26] MEDS: Ziprasidone 20 MG CAP PO SCH (09:26)
[2021-12-26] MEDS: Ferrous Sulfate 325 MG TAB PO SCH ×2 (09:27→17:09)
[2021-12-26] MEDS: Folic Acid 1 MG TAB PO SCH (09:27)
[2021-12-26] MEDS: Gabapentin 100 MG CAP PO SCH ×3 (09:27→20:27)
[2021-12-26] MEDS: Loratadine 10 MG TAB PO SCH (09:27)
[2021-12-26 09:43] LABS: Anion Gap 10 mmol/L (10-20); BUN (Urea Nitrogen) Less than 4 mg/dL (7.0-18.7); Calc. Creatinine Clearance 229 mL/min (70-130); Calcium 7.9 mg/dL (7.8-10.44); Carbon Dioxide 23 mmol/L (22-29); Chloride 106 mmol/L (98-107); Estimated GFR 117; Glucose 80 mg/dL (70-105); Magnesium 1.8 mg/dL (1.6-2.6); Phosphorus 3.2 mg/dL (2.3-4.7); Potassium 3.9 mmol/L (3.5-5.1); Sodium 135 mmol/L (136-145)
[2021-12-26] MEDS: Metoprolol Tartrate 25 MG TAB PO SCH ×2 (10:37→20:28)
[2021-12-26] MEDS ORDERED: Magnesium 2 GM/50 ML(in water) 2 GM in Premix Bag 1 BAG IVPB SCH (13:00)
[2021-12-26] MEDS: Amitriptyline HCl 25 MG TAB PO SCH (20:28)
[2021-12-26] MEDS: Simvastatin 5 MG TAB PO SCH (20:28)
[2021-12-27 06:11] LABS: Anion Gap 13 mmol/L (10-20); BUN (Urea Nitrogen) Less than 4 mg/dL (7.0-18.7); Calc. Creatinine Clearance 239 mL/min (70-130); Calcium 7.9 mg/dL (7.8-10.44); Carbon Dioxide 22 mmol/L (22-29); Chloride 105 mmol/L (98-107); Estimated GFR 118; Glucose 98 mg/dL (70-105); Magnesium 1.8 mg/dL (1.6-2.6); Phosphorus 3.2 mg/dL (2.3-4.7); Potassium 3.7 mmol/L (3.5-5.1); Sodium 136 mmol/L (136-145)
[2021-12-27 06:59] LABS: Hemoglobin 9.1 g/dL (12.0-16.0); Mean Corpuscular Hemoglobin 29.1 pg (27.0-31.0); Mean Platelet Volume 6.2 fL (7.4-10.4); Platelet Count 665 10x3/uL (130-400); RBC Distribution Width 12.8 % (11.5-14.5); Red Blood Cell (RBC) Count 3.12 mill/uL (4.20-5.40)
[2021-12-27] MEDS ORDERED: Magnesium 2 GM/50 ML(in water) 2 GM in Premix Bag 1 BAG IVPB SCH (08:00)
[2021-12-27] MEDS: Ziprasidone 20 MG CAP PO SCH (08:16)
[2021-12-27] MEDS: Metoprolol Tartrate 25 MG TAB PO SCH ×2 (08:16→20:21)
[2021-12-27] MEDS: Ascorbic Acid 500 mg Chewable Tablet PO SCH (08:16)
[2021-12-27] MEDS: Ferrous Sulfate 325 MG TAB PO SCH ×2 (08:17→16:21)
[2021-12-27] MEDS: Loratadine 10 MG TAB PO SCH (08:17)
[2021-12-27] MEDS: Gabapentin 100 MG CAP PO SCH ×3 (08:17→20:21)
[2021-12-27] MEDS: Cefepime 1 GM in Sodium Chloride 0.9% 100 ML IVPB SCH ×3 (08:17→20:21)
[2021-12-27] MEDS: Folic Acid 1 MG TAB PO SCH (08:17)
[2021-12-27] MEDS: Amlodipine 10 MG TAB PO SCH (08:17)
[2021-12-27 08:39] LABS: Band 1 % (5-11); Eosinophils 1 % (0-10); Lymphocytes 33 % (21-51); MDiff Complete? YES; Monocytes 6 % (0-10); Neutrophil 58 % (42-75); Platelet Morphology Comment Appears Increased; RBC Morphology Normal; Reactive Lymphocytes 1 % (0-10)
[2021-12-27] MEDS: HYDROcodone/Acetaminophen 5/325 mg Tablet PO PRN (16:25)
[2021-12-27] MEDS: Simvastatin 5 MG TAB PO SCH (20:21)
[2021-12-27] MEDS: Amitriptyline HCl 25 MG TAB PO SCH (20:21)
[2021-12-27] MEDS: Acetaminophen 325 MG TAB PO PRN (20:22)
[2021-12-28] MEDS: HYDROcodone/Acetaminophen 5/325 mg Tablet PO PRN ×2 (00:46→10:03)
[2021-12-28 04:55] LABS: #Eosinphils 0.2 thou/uL (0.0-0.7); #Lymphocytes 4.1 thou/uL (1.20-3.40); #Monocytes 0.7 thou/uL (0.11-0.59); #Neutrophils 5.6 thou/uL (1.40-6.50); %Basophils 0.5 % (0.0-1.0); %Lymphocytes 38.3 % (21.0-51.0); %Monocytes 6.2 % (0.0-10.0); Hemoglobin 9.2 g/dL (12.0-16.0); Mean Corpuscular HGB CONC 31.4 g/dL (32.0-36.0); Mean Corpuscular Hemoglobin 29.8 pg (27.0-31.0); Mean Corpuscular Volume 95.1 fl (78.0-98.0); Mean Platelet Volume 6.1 fL (7.4-10.4); Platelet Count 706 10x3/uL (130-400); RBC Distribution Width 13.3 % (11.5-14.5); Red Blood Cell (RBC) Count 3.07 mill/uL (4.20-5.40); White Blood Cell (WBC) Count 10.6 10x3/uL (4.8-10.8)
[2021-12-28 05:08] LABS: Anion Gap 11 mmol/L (10-20); BUN (Urea Nitrogen) 4 mg/dL (7.0-18.7); Calc. Creatinine Clearance 224 mL/min (70-130); Calcium 8.2 mg/dL (7.8-10.44); Carbon Dioxide 25 mmol/L (22-29); Chloride 106 mmol/L (98-107); Estimated GFR 116; Glucose 74 mg/dL (70-105); Magnesium 1.6 mg/dL (1.6-2.6); Phosphorus 3.3 mg/dL (2.3-4.7); Potassium 4.1 mmol/L (3.5-5.1); Sodium 138 mmol/L (136-145)
[2021-12-28] MEDS ORDERED: Magnesium 2 GM/50 ML(in water) 2 GM in Premix Bag 1 BAG IVPB SCH (05:30)
[2021-12-28] MEDS: Ziprasidone 20 MG CAP PO SCH (10:01)
[2021-12-28] MEDS: Ferrous Sulfate 325 MG TAB PO SCH ×2 (10:01→16:41)
[2021-12-28] MEDS: Ascorbic Acid 500 mg Chewable Tablet PO SCH (10:02)
[2021-12-28] MEDS: Cefepime 1 GM in Sodium Chloride 0.9% 100 ML IVPB SCH (10:02)
[2021-12-28] MEDS: Gabapentin 100 MG CAP PO SCH ×2 (10:02→16:40)
[2021-12-28] MEDS: Folic Acid 1 MG TAB PO SCH (10:02)
[2021-12-28] MEDS: Amlodipine 10 MG TAB PO SCH (10:02)
[2021-12-28] MEDS: Loratadine 10 MG TAB PO SCH (10:03)
[2021-12-28] MEDS: Metoprolol Tartrate 25 MG TAB PO SCH (10:03)
[2021-12-28 16:22] VITALS: TEMP 97.7
[2021-12-28 16:41] VITALS: BP 127/73
== END 2021-12-28 17:30 | disposition home or self-care (01) | DRG 698 ==
LOC: 2NO 17:37
PROVIDERS: ADMIT Internal Medicine; ATTEND Internal Medicine
PROC: 3E03329 Introduction of Other Anti-infective into Peripheral Vein, Percutaneous Approach (ICD-10-PCS; principal; 2021-12-23)
PROC: 30233N1 Transfusion of Nonautologous Red Blood Cells into Peripheral Vein, Percutaneous Approach (ICD-10-PCS; 2021-12-26)
DX: T83.511A Infection and inflammatory reaction due to indwelling urethral catheter, initial encounter (principal); A41.4 Sepsis due to anaerobes; L89.154 Pressure ulcer of sacral region, stage 4; G82.20 Paraplegia, unspecified; N39.0 Urinary tract infection, site not specified; Z20.822 Contact with and (suspected) exposure to COVID-19; G35 Multiple sclerosis; E78.5 Hyperlipidemia, unspecified; E87.6 Hypokalemia; E83.42 Hypomagnesemia; D64.9 Anemia, unspecified; D75.839 Thrombocytosis, unspecified; Y84.6 Urinary catheterization as the cause of abnormal reaction of the patient, or of later complication, without mention of misadventure at the time of the procedure; N31.9 Neuromuscular dysfunction of bladder, unspecified; D63.8 Anemia in other chronic diseases classified elsewhere; R19.5 Other fecal abnormalities; E66.9 Obesity, unspecified; Z28.21 Immunization not carried out because of patient refusal; Z88.8 Allergy status to other drugs, medicaments and biological substances; Z86.718 Personal history of other venous thrombosis and embolism; Z79.01 Long term (current) use of anticoagulants; Z93.3 Colostomy status; Z79.899 Other long term (current) drug therapy; Z99.3 Dependence on wheelchair; Z68.37 Body mass index [BMI] 37.0-37.9, adult
CPT/HCPCS: 36415; 36416; 36430; 80048; 80202; 82274; 83735; 84100; 85025; 86850; 86900; 86901; 87040; 87086; 97139; J0692; J2405; J3370; J3475; J3490; P9016; Q0162; U0003; U0005

== ENCOUNTER 2022-01-15 21:45 | Inpatient (IN) | payer OTHER ==
[2022-01-15 23:43] LABS: #Eosinphils 0.1 thou/uL (0.0-0.7); #Lymphocytes 1.8 thou/uL (1.20-3.40); #Monocytes 0.3 thou/uL (0.11-0.59); #Neutrophils 7.2 thou/uL (1.40-6.50); %Basophils 0.2 % (0.0-1.0); %Eosinophils 1.2 % (0.0-10.0); %Lymphocytes 19.2 % (21.0-51.0); %Monocytes 2.8 % (0.0-10.0); %Neutrophils 76.7 % (42.0-75.0); Mean Corpuscular HGB CONC 31.4 g/dL (32.0-36.0); Mean Corpuscular Hemoglobin 31.5 pg (27.0-31.0); Platelet Count 549 10x3/uL (130-400); RBC Distribution Width 14.5 % (11.5-14.5); Red Blood Cell (RBC) Count 3.19 mill/uL (4.20-5.40); White Blood Cell (WBC) Count 9.5 10x3/uL (4.8-10.8)
[2022-01-16 00:07] LABS: ALT (SGPT) 13 U/L (8-55); AST (SGOT) 14 U/L (5-34); Albumin 1.6 g/dL (3.5-5.0); Alkaline Phosphatase 207 U/L (40-110); Anion Gap 12 mmol/L (10-20); BUN (Urea Nitrogen) Less than 4 mg/dL (7.0-18.7); Bilirubin, Total 0.3 mg/dL (0.2-1.2); Calc. Creatinine Clearance 0 mL/min (70-130); Calcium 7.3 mg/dL (7.8-10.44); Carbon Dioxide 24 mmol/L (22-29); Chloride 105 mmol/L (98-107); Estimated GFR 119; Globulin 4.1 g/dL (2.4-3.5); Glucose 114 mg/dL (70-105); Potassium 3.2 mmol/L (3.5-5.1); Protein, Total 5.7 g/dL (6.0-8.3); Sodium 138 mmol/L (136-145)
[2022-01-16] MEDS ORDERED: Potassium Chloride 20 MEQ TAB ONE ×2 (00:28→05:45)
[2022-01-16] MEDS ORDERED: Acetaminophen 325 MG TAB PO PRN ×2 (01:00→01:17)
[2022-01-16] MEDS ORDERED: Cefepime 2 GM in Sodium Chloride 0.9% 100 ML IVPB SCH (01:00)
[2022-01-16] MEDS ORDERED: Ondansetron PF 4 MG/2 ML Vial IVP PRN (01:00)
[2022-01-16] MEDS ORDERED: Ondansetron ODT 4 MG TAB SL PRN (01:00)
[2022-01-16] MEDS ORDERED: Sodium Chloride 0.9% 1,000 ML IV SCH (01:00)
[2022-01-16] MEDS ORDERED: Ondansetron ODT 4 MG TAB PO PRN (01:17)
[2022-01-16] MEDS ORDERED: Dextrose 5% in Water 1,000 ML IV PRN (01:17)
[2022-01-16] MEDS ORDERED: Dextrose 50% Abboject 50 ML SYRINGE SLOW IVP PRN (01:17)
[2022-01-16] MEDS ORDERED: HumaLOG 300 UNITS/3 ML VIAL SC PRN ×2 (01:17)
[2022-01-16] MEDS ORDERED: Cefepime 1 GM VIAL ONE (01:27)
[2022-01-16] MEDS ORDERED: Electrolyte Replacement Protocol 1 EACH FS SCH (01:45)
[2022-01-16] MEDS: Sodium Chloride 0.9% 1,000 ML IV SCH ×3 (03:01→18:27)
[2022-01-16 03:26] LABS: Eosinophils 3 % (0-10); Hemoglobin 8.8 g/dL (12.0-16.0); Hypochromia SLIGHT = 6-15 cells (100X) (0-5/hpf); Lymphocytes 17 % (21-51); MDiff Complete? YES; Macrocytosis SLIGHT = 6-15 cells (100X) (0-5/hpf); Mean Corpuscular HGB CONC 31.4 g/dL (32.0-36.0); Mean Corpuscular Hemoglobin 31.4 pg (27.0-31.0); Monocytes 1 % (0-10); Neutrophil 79 % (42-75); Ovalocytes SLIGHT = 2-5 cells (100X) (0-1/hpf); Platelet Count 466 10x3/uL (130-400); Platelet Morphology Comment Appears Increased; Polychromasia SLIGHT = 2-3 cells (100X) (0-2/hpf); RBC Distribution Width 14.5 % (11.5-14.5); Red Blood Cell (RBC) Count 2.79 mill/uL (4.20-5.40); White Blood Cell (WBC) Count 7.2 10x3/uL (4.8-10.8)
[2022-01-16 03:30] LABS: Anion Gap 10 mmol/L (10-20); BUN (Urea Nitrogen) Less than 4 mg/dL (7.0-18.7); Calc. Creatinine Clearance 257 mL/min (70-130); Calcium 6.9 mg/dL (7.8-10.44); Carbon Dioxide 23 mmol/L (22-29); Chloride 106 mmol/L (98-107); Estimated GFR 121; Glucose 87 mg/dL (70-105); Potassium 3.1 mmol/L (3.5-5.1); Sodium 136 mmol/L (136-145)
[2022-01-16] MEDS ORDERED: Potassium Chloride 20 MEQ TAB PO SCH ×2 (04:00→18:30)
[2022-01-16] MEDS ORDERED: Cefepime 2 GM VIAL ONE (05:19)
[2022-01-16] MEDS ORDERED: CEFAZOLIN 2 GM VIAL ONE (05:19)
[2022-01-16 05:46] LABS: Magnesium 1.6 mg/dL (1.6-2.6)
[2022-01-16] MEDS: Cefepime 2 GM in Sodium Chloride 0.9% 100 ML IVPB SCH ×2 (05:57→18:26)
[2022-01-16] MEDS ORDERED: Magnesium 2 GM/50 ML(in water) 2 GM in Premix Bag 1 BAG IVPB SCH (08:00)
[2022-01-16] MEDS ORDERED: Enoxaparin Sodium 40 MG/0.4 ML SYRINGE SC SCH (09:00)
[2022-01-16] MEDS ORDERED: Magnesium 2 GM/50 ML BAG (IN WATER) ONE (09:27)
[2022-01-16] MEDS ORDERED: Ondansetron PF 4 MG/2 ML Vial ONE (09:37)
[2022-01-16] MEDS: Ondansetron PF 4 MG/2 ML Vial IVP PRN (09:41)
[2022-01-16] MEDS ORDERED: Acetaminophen 325 MG TAB ONE (12:47)
[2022-01-16 13:13] LABS: SARS-CoV-2 NAA Rapid Test Not Detected (NotDetected)
[2022-01-16] MEDS ORDERED: traMADol HCl 50 MG TAB ONE (15:01)
[2022-01-16] MEDS: traMADol HCl 50 MG TAB PO PRN (15:34)
[2022-01-16] MEDS: Apixaban 5 MG TAB PO SCH ×2 (16:44→20:16)
[2022-01-16] MEDS ORDERED: Mag-Al Plus 1200 MG/1200 MG/120 MG/30 ML UDCUP PO PRN (18:23)
[2022-01-16] MEDS ORDERED: Pantoprazole 40 MG VIAL IVP SCH (18:24)
[2022-01-16 19:46] LABS: Anion Gap 9 mmol/L (10-20); BUN (Urea Nitrogen) Less than 4 mg/dL (7.0-18.7); Calc. Creatinine Clearance 236 mL/min (70-130); Calcium 6.8 mg/dL (7.8-10.44); Carbon Dioxide 23 mmol/L (22-29); Chloride 109 mmol/L (98-107); Estimated GFR 121; Glucose 74 mg/dL (70-105); Potassium 3.9 mmol/L (3.5-5.1); Sodium 137 mmol/L (136-145)
[2022-01-16] MEDS: Vancomycin 1.5 GRAM/300 ML BAG 1.5 GM in Premix Bag 1 BAG IVPB SCH (20:15)
[2022-01-16] MEDS ORDERED: Calcium Gluconate 100 MG/ML 10 ML IVPB SCH (20:45)
[2022-01-16 20:51] LABS: Troponin I Less than 0.010 ng/mL (< 0.028)
[2022-01-16] MEDS ORDERED: CALCIUM GLUC 1 GM/NS 50 ML 1 GM in Premix Bag 1 BAG IVPB SCH (21:00)
[2022-01-16 22:26] LABS: Amphetamine Not Detected (NotDetected); Barbiturates Screen Not Detected (NotDetected); Benzodiazepine Screen Detected (NotDetected); Cocaine Metabolite Screen Not Detected (NotDetected); Methadone Not Detected (NotDetected); Methamphetamine Not Detected (NotDetected); Opiate Screen Not Detected (NotDetected); Oxycodone Screen Not Detected (NotDetected); Phencyclidine (PCP) Not Detected (NotDetected); THC/Cannabinoid Screen Detected (NotDetected); Tricyclic Screen Detected (NotDetected)
[2022-01-16] MEDS ORDERED: Cepastat Lozenges 1 LOZ PO PRN (23:14)
[2022-01-16] MEDS: GUAIFENESIN SF SOLN 200 MG/10 ML UDCUP PO PRN (23:52)
[2022-01-17] MEDS: traMADol HCl 50 MG TAB PO PRN ×3 (02:36→21:57)
[2022-01-17] MEDS: Sodium Chloride 0.9% 1,000 ML IV SCH ×3 (02:39→16:57)
[2022-01-17 04:50] LABS: #Eosinphils 0.1 thou/uL (0.0-0.7); #Lymphocytes 1.1 thou/uL (1.20-3.40); #Monocytes 0.2 thou/uL (0.11-0.59); #Neutrophils 4.9 thou/uL (1.40-6.50); %Basophils 0.4 % (0.0-1.0); %Eosinophils 1.4 % (0.0-10.0); %Monocytes 3.2 % (0.0-10.0); %Neutrophils 78.1 % (42.0-75.0); Hemoglobin 10.7 g/dL (12.0-16.0); Mean Corpuscular HGB CONC 30.4 g/dL (32.0-36.0); Mean Corpuscular Hemoglobin 30.7 pg (27.0-31.0); Mean Platelet Volume 6.6 fL (7.4-10.4); Platelet Count 433 10x3/uL (130-400); RBC Distribution Width 14.7 % (11.5-14.5); Red Blood Cell (RBC) Count 3.47 mill/uL (4.20-5.40); White Blood Cell (WBC) Count 6.3 10x3/uL (4.8-10.8)
[2022-01-17 05:10] LABS: Anion Gap 14 mmol/L (10-20); BUN (Urea Nitrogen) Less than 4 mg/dL (7.0-18.7); Calc. Creatinine Clearance 214 mL/min (70-130); Calcium 7.3 mg/dL (7.8-10.44); Carbon Dioxide 18 mmol/L (22-29); Chloride 109 mmol/L (98-107); Estimated GFR 119; Glucose 92 mg/dL (70-105); Potassium 5.3 mmol/L (3.5-5.1); Sodium 136 mmol/L (136-145)
[2022-01-17] MEDS: Cefepime 2 GM in Sodium Chloride 0.9% 100 ML IVPB SCH ×2 (05:39→16:13)
[2022-01-17] MEDS ORDERED: Magnesium 2 GM/50 ML(in water) 2 GM in Premix Bag 1 BAG IVPB SCH (08:00)
[2022-01-17] MEDS: Apixaban 5 MG TAB PO SCH ×2 (08:36→20:00)
[2022-01-17 11:32] LABS: Troponin I Less than 0.010 ng/mL (< 0.028)
[2022-01-17 11:33] LABS: Potassium 5.6 mmol/L (3.5-5.1)
[2022-01-17 17:21] LABS: Vancomycin, Trough 12.4 ug/mL
[2022-01-17] MEDS: GUAIFENESIN SF SOLN 200 MG/10 ML UDCUP PO PRN ×2 (17:39→21:56)
[2022-01-17] MEDS: Vancomycin 1.5 GRAM/300 ML BAG 1.5 GM in Premix Bag 1 BAG IVPB SCH (17:43)
[2022-01-17] MEDS ORDERED: Albuterol Sulfate 1.25 MG/3 ML NEB NEB SCH (18:30)
[2022-01-17] MEDS ORDERED: Insulin Regular 300 UNITS/3 ML VIAL IVP SCH (18:30)
[2022-01-17] MEDS: Sodium Bicarbonate 150 MEQ in Dextrose 5% in Water 1,000 ML IV SCH (19:58)
[2022-01-17] MEDS: Nystatin Ointment 15 GM TUBE TOP SCH (20:00)
[2022-01-17] MEDS ORDERED: Albuterol Sulfate 2.5 mg/3 ml Neb ONE (21:25)
[2022-01-17] MEDS ORDERED: Melatonin 3 MG TAB PO PRN (22:28)
[2022-01-17 23:48] LABS: Potassium 3.3 mmol/L (3.5-5.1)
[2022-01-18] MEDS: Cefepime 2 GM in Sodium Chloride 0.9% 100 ML IVPB SCH ×2 (04:06→17:43)
[2022-01-18] MEDS: traMADol HCl 50 MG TAB PO PRN ×2 (04:34→15:06)
[2022-01-18] MEDS: GUAIFENESIN SF SOLN 200 MG/10 ML UDCUP PO PRN ×4 (04:34→23:56)
[2022-01-18 07:28] LABS: #Lymphocytes 1.1 thou/uL (1.20-3.40); #Monocytes 0.2 thou/uL (0.11-0.59); #Neutrophils 2.8 thou/uL (1.40-6.50); %Basophils 0.6 % (0.0-1.0); %Eosinophils 0.4 % (0.0-10.0); %Lymphocytes 26.6 % (21.0-51.0); %Monocytes 5.1 % (0.0-10.0); %Neutrophils 67.2 % (42.0-75.0); Hemoglobin 6.8 g/dL (12.0-16.0); Mean Corpuscular HGB CONC 30.1 g/dL (32.0-36.0); Mean Corpuscular Hemoglobin 31.2 pg (27.0-31.0); Mean Platelet Volume 6.4 fL (7.4-10.4); Platelet Count 274 10x3/uL (130-400); RBC Distribution Width 14.2 % (11.5-14.5); Red Blood Cell (RBC) Count 2.17 mill/uL (4.20-5.40); White Blood Cell (WBC) Count 4.2 10x3/uL (4.8-10.8)
[2022-01-18 07:34] LABS: Anion Gap 12 mmol/L (10-20); BUN (Urea Nitrogen) Less than 4 mg/dL (7.0-18.7); Calc. Creatinine Clearance 224 mL/min (70-130); Carbon Dioxide 17 mmol/L (22-29); Chloride 108 mmol/L (98-107); Estimated GFR 118; Glucose 144 mg/dL (70-105); Potassium 3.2 mmol/L (3.5-5.1); Sodium 134 mmol/L (136-145)
[2022-01-18 07:43] LABS: Calcium 6.4 mg/dL (7.8-10.44)
[2022-01-18] MEDS ORDERED: Potassium Chloride 20 MEQ TAB PO SCH (08:30)
[2022-01-18 08:47] LABS: Hemoglobin 7.8 g/dL (12.0-16.0)
[2022-01-18] MEDS: Apixaban 5 MG TAB PO SCH ×2 (09:06→19:30)
[2022-01-18] MEDS: Sodium Bicarbonate 150 MEQ in Dextrose 5% in Water 1,000 ML IV SCH (09:06)
[2022-01-18] MEDS: Nystatin Ointment 15 GM TUBE TOP SCH ×2 (09:09→19:30)
[2022-01-18] MEDS ORDERED: Cefepime 2 GM VIAL ONE (17:42)
[2022-01-18] MEDS: Vancomycin 1.5 GRAM/300 ML BAG 1.5 GM in Premix Bag 1 BAG IVPB SCH (18:53)
[2022-01-19] MEDS: Sodium Bicarbonate 150 MEQ in Dextrose 5% in Water 1,000 ML IV SCH ×2 (01:00→17:14)
[2022-01-19] MEDS: Cefepime 2 GM in Sodium Chloride 0.9% 100 ML IVPB SCH ×2 (05:28→17:14)
[2022-01-19] MEDS: Nystatin Ointment 15 GM TUBE TOP SCH ×2 (09:04→20:39)
[2022-01-19] MEDS: Apixaban 5 MG TAB PO SCH ×2 (09:04→20:38)
[2022-01-19 09:36] LABS: #Eosinphils 0.1 thou/uL (0.0-0.7); #Lymphocytes 1.5 thou/uL (1.20-3.40); #Monocytes 0.2 thou/uL (0.11-0.59); #Neutrophils 3.1 thou/uL (1.40-6.50); %Basophils 0.5 % (0.0-1.0); %Eosinophils 1.5 % (0.0-10.0); %Lymphocytes 30.6 % (21.0-51.0); %Monocytes 3.6 % (0.0-10.0); %Neutrophils 63.7 % (42.0-75.0); Hemoglobin 8.9 g/dL (12.0-16.0); Mean Corpuscular HGB CONC 31.1 g/dL (32.0-36.0); Mean Corpuscular Hemoglobin 31.2 pg (27.0-31.0); Mean Platelet Volume 6.8 fL (7.4-10.4); Platelet Count 208 10x3/uL (130-400); RBC Distribution Width 13.9 % (11.5-14.5); Red Blood Cell (RBC) Count 2.87 mill/uL (4.20-5.40); White Blood Cell (WBC) Count 4.9 10x3/uL (4.8-10.8)
[2022-01-19 10:00] LABS: Anion Gap 8 mmol/L (10-20); BUN (Urea Nitrogen) Less than 4 mg/dL (7.0-18.7); Calc. Creatinine Clearance 246 mL/min (70-130); Calcium 7.2 mg/dL (7.8-10.44); Carbon Dioxide 25 mmol/L (22-29); Chloride 104 mmol/L (98-107); Estimated GFR 121; Glucose 84 mg/dL (70-105); Magnesium 1.7 mg/dL (1.6-2.6); Potassium 3.1 mmol/L (3.5-5.1); Sodium 134 mmol/L (136-145)
[2022-01-19] MEDS ORDERED: Potassium Chloride 20 MEQ TAB PO SCH ×2 (13:15→17:00)
[2022-01-19] MEDS ORDERED: Magnesium 2 GM/50 ML(in water) 2 GM in Premix Bag 1 BAG IVPB SCH (13:15)
[2022-01-19] MEDS: traMADol HCl 50 MG TAB PO PRN ×2 (15:48→21:11)
[2022-01-19] MEDS: Ondansetron PF 4 MG/2 ML Vial IVP PRN (15:48)
[2022-01-19 17:31] LABS: Vancomycin, Trough 10.3 ug/mL
[2022-01-19] MEDS: Vancomycin 1.5 GRAM/300 ML BAG 1.5 GM in Premix Bag 1 BAG IVPB SCH (18:26)
[2022-01-19] MEDS: GUAIFENESIN SF SOLN 200 MG/10 ML UDCUP PO PRN (20:39)
[2022-01-20] MEDS ORDERED: diphenhydrAMINE 25 MG CAP PO SCH (00:30)
[2022-01-20] MEDS: Cefepime 2 GM in Sodium Chloride 0.9% 100 ML IVPB SCH ×2 (04:39→16:39)
[2022-01-20] MEDS: Vancomycin 1 GM in Premix Bag 1 BAG IVPB SCH ×2 (05:23→18:11)
[2022-01-20 07:20] LABS: Anion Gap 11 mmol/L (10-20); BUN (Urea Nitrogen) Less than 4 mg/dL (7.0-18.7); Calc. Creatinine Clearance 240 mL/min (70-130); Calcium 7.4 mg/dL (7.8-10.44); Carbon Dioxide 23 mmol/L (22-29); Chloride 108 mmol/L (98-107); Estimated GFR 120; Glucose 96 mg/dL (70-105); Magnesium 1.9 mg/dL (1.6-2.6); Potassium 4.4 mmol/L (3.5-5.1); Sodium 138 mmol/L (136-145)
[2022-01-20] MEDS: Sodium Bicarbonate 150 MEQ in Dextrose 5% in Water 1,000 ML IV SCH (08:31)
[2022-01-20] MEDS: Apixaban 5 MG TAB PO SCH ×2 (08:32→20:52)
[2022-01-20] MEDS: Nystatin Ointment 15 GM TUBE TOP SCH ×2 (08:32→20:53)
[2022-01-20] MEDS ORDERED: FLU VACC QS2022-23(6MOS UP)/PF 60 MCG/0.5 ML SYRINGE IM ONE (09:00)
[2022-01-20] MEDS ORDERED: Magnesium 2 GM/50 ML(in water) 2 GM in Premix Bag 1 BAG IVPB SCH (11:45)
[2022-01-20 16:21] VITALS: BMI 35.5
[2022-01-20] MEDS: traMADol HCl 50 MG TAB PO PRN (20:52)
[2022-01-20] MEDS: Amitriptyline HCl 100 MG TAB PO SCH (20:52)
[2022-01-21] MEDS: Cefepime 2 GM in Sodium Chloride 0.9% 100 ML IVPB SCH ×2 (04:56→17:31)
[2022-01-21 07:19] LABS: Vancomycin, Trough 20.7 ug/mL
[2022-01-21] MEDS: Folic Acid 1 MG TAB PO SCH (09:10)
[2022-01-21] MEDS: Ziprasidone 20 MG CAP PO SCH (09:10)
[2022-01-21] MEDS: Vancomycin HCl 750 MG in Sodium Chloride 0.9% 250 ML 250 ML IVPB SCH ×2 (09:10→21:18)
[2022-01-21] MEDS: Apixaban 5 MG TAB PO SCH ×2 (09:11→21:18)
[2022-01-21] MEDS: Nystatin Ointment 15 GM TUBE TOP SCH ×2 (09:11→21:19)
[2022-01-21] MEDS: Vancomycin 1 GM in Premix Bag 1 BAG IVPB SCH (09:20)
[2022-01-21] MEDS: Clindamycin 150 MG CAP PO SCH (17:31)
[2022-01-21] MEDS: GUAIFENESIN SF SOLN 200 MG/10 ML UDCUP PO PRN (17:32)
[2022-01-21] MEDS: Amitriptyline HCl 100 MG TAB PO SCH (21:18)
[2022-01-22] MEDS: Clindamycin 150 MG CAP PO SCH ×5 (01:18→18:20)
[2022-01-22] MEDS: Cefepime 2 GM in Sodium Chloride 0.9% 100 ML IVPB SCH ×2 (05:15→17:29)
[2022-01-22] MEDS: Ziprasidone 20 MG CAP PO SCH (08:57)
[2022-01-22] MEDS: Folic Acid 1 MG TAB PO SCH (08:57)
[2022-01-22] MEDS: Apixaban 5 MG TAB PO SCH ×2 (08:57→19:55)
[2022-01-22] MEDS: Vancomycin HCl 750 MG in Sodium Chloride 0.9% 250 ML 250 ML IVPB SCH ×2 (08:57→20:35)
[2022-01-22] MEDS: Nystatin Ointment 15 GM TUBE TOP SCH (08:58)
[2022-01-22] MEDS ORDERED: Saccharomyces boulardii 250 MG CAP PO SCH (09:00)
[2022-01-22] MEDS: Amitriptyline HCl 100 MG TAB PO SCH (19:55)
[2022-01-22 20:01] LABS: Vancomycin, Trough 21.5 ug/mL
[2022-01-22 21:01] VITALS: BP 116/84; TEMP 97.5
== END 2022-01-22 20:38 | disposition home or self-care (01) | DRG 698 ==
LOC: ERS 21:45 → ERHOLD 01-16 00:38 → 2NO 01-16 17:34 → T4-A 01-18 20:42
PROVIDERS: ADMIT Internal Medicine; ATTEND Internal Medicine
DX: T83.511A Infection and inflammatory reaction due to indwelling urethral catheter, initial encounter (principal); Z20.822 Contact with and (suspected) exposure to COVID-19; Z23 Encounter for immunization; A41.9 Sepsis, unspecified organism; R65.21 Severe sepsis with septic shock; L89.154 Pressure ulcer of sacral region, stage 4; G82.20 Paraplegia, unspecified; N39.0 Urinary tract infection, site not specified; G35 Multiple sclerosis; Y84.6 Urinary catheterization as the cause of abnormal reaction of the patient, or of later complication, without mention of misadventure at the time of the procedure; F31.9 Bipolar disorder, unspecified; E11.9 Type 2 diabetes mellitus without complications; I10 Essential (primary) hypertension; N31.9 Neuromuscular dysfunction of bladder, unspecified; E87.6 Hypokalemia; E83.42 Hypomagnesemia; R07.89 Other chest pain; E66.9 Obesity, unspecified; Z68.35 Body mass index [BMI] 35.0-35.9, adult; Z88.8 Allergy status to other drugs, medicaments and biological substances; Z79.899 Other long term (current) drug therapy; Z79.01 Long term (current) use of anticoagulants; Z86.718 Personal history of other venous thrombosis and embolism; Z89.412 Acquired absence of left great toe; Z89.422 Acquired absence of other left toe(s); Z82.49 Family history of ischemic heart disease and other diseases of the circulatory system
CPT/HCPCS: 36415; 36416; 80048; 80202; 80306; 82040; 83605; 83735; 83880; 84484; 85025; 90471; 90686; 93005; 93010; 94640; 97139; 99285; C9113; G0008; J0610; J0692; J1815; J2405; J3370; J3370-JW; J3475; J3490; J7050; J7070; Q0162

== ENCOUNTER 2022-02-03 03:00 | Inpatient (IN) | payer OTHER ==
[2022-02-03 05:07] LABS: ALT (SGPT) 23 U/L (8-55); AST (SGOT) 12 U/L (5-34); Albumin 1.1 g/dL (3.5-5.0); Alkaline Phosphatase 127 U/L (40-110); Anion Gap 11 mmol/L (10-20); BUN (Urea Nitrogen) Less than 4 mg/dL (7.0-18.7); Calc. Creatinine Clearance 0 mL/min (70-130); Carbon Dioxide 17 mmol/L (22-29); Chloride 113 mmol/L (98-107); Estimated GFR 113; Globulin 3.7 g/dL (2.4-3.5); Glucose 176 mg/dL (70-105); Protein, Total 4.8 g/dL (6.0-8.3); Sodium 139 mmol/L (136-145)
[2022-02-03 05:25] LABS: Hemoglobin 5.7 g/dL (12.0-16.0); Mean Corpuscular HGB CONC 31.8 g/dL (32.0-36.0); Mean Corpuscular Hemoglobin 32.8 pg (27.0-31.0); Mean Platelet Volume 7.2 fL (7.4-10.4); Platelet Count 383 10x3/uL (130-400); RBC Distribution Width 14.4 % (11.5-14.5); Red Blood Cell (RBC) Count 1.75 mill/uL (4.20-5.40); White Blood Cell (WBC) Count 9.6 10x3/uL (4.8-10.8)
[2022-02-03] MEDS ORDERED: NOREPINEPHRINE 8 MG/250 ML-D5W 250 ML IVPB PRN ×2 (05:28→20:31)
[2022-02-03] MEDS ORDERED: Sodium Chloride 0.9% 1,000 ML IV SCH (05:30)
[2022-02-03] MEDS ORDERED: Piperacillin/Tazobactam 3.375 GM in Sodium Chloride 0.9% 100 ML IVPB SCH (05:30)
[2022-02-03 05:49] LABS: Bilirubin, Total 0.8 mg/dL (0.2-1.2); Calcium 5.7 mg/dL (7.8-10.44); Potassium 2.1 mmol/L (3.5-5.1)
[2022-02-03 06:02] LABS: Band 2 % (5-11); Lymphocytes 14 % (21-51); MDiff Complete? YES; Macrocytosis SLIGHT = 6-15 cells (100X) (0-5/hpf); Monocytes 6 % (0-10); Myelocyte 1 % (0-0); Neutrophil 77 % (42-75)
[2022-02-03 06:23] LABS: Iron 50 ug/dL (50-170)
[2022-02-03] MEDS ORDERED: Calcium Gluc 4.6 MEQ/10 ML (100 MG/ML) SLOW IVP SCH (06:52)
[2022-02-03] MEDS ORDERED: HumaLOG 300 UNITS/3 ML VIAL SC PRN (06:55)
[2022-02-03] MEDS ORDERED: Dextrose 5% in Water 1,000 ML IV PRN (06:55)
[2022-02-03] MEDS ORDERED: Dextrose 50% Abboject 50 ML SYRINGE SLOW IVP PRN (06:55)
[2022-02-03] MEDS ORDERED: Sodium Bicarb 50 MEQ/50 ML Abboject 8.4% SYRINGE IVP SCH (07:00)
[2022-02-03] MEDS ORDERED: Magnesium Sulfate 2 GM in Sodium Chloride 0.9% 100 ML IVPB SCH (07:00)
[2022-02-03] MEDS ORDERED: Electrolyte Replacement Protocol 1 EACH FS SCH (07:00)
[2022-02-03] MEDS ORDERED: Magnesium Sulfate 4 GM in Sodium Chloride 0.9% 250 ML 250 ML IVPB SCH (07:45)
[2022-02-03] MEDS: Fluconazole In NaCl,Iso-Osm 400 MG in Premix Bag 1 BAG IVPB SCH ×2 (08:04→08:05)
[2022-02-03] MEDS: Potassium Chloride 20 MEQ in Premix Bag 1 BAG IVPB SCH ×6 (08:10→19:47)
[2022-02-03] MEDS: Albumin 25% 25 GM/100 ML BOT IVPB SCH ×4 (08:10→23:11)
[2022-02-03] MEDS: Cefepime 2 GM in Sodium Chloride 0.9% 100 ML IVPB SCH ×2 (08:10→19:47)
[2022-02-03] MEDS ORDERED: Calcium Gluconate 4.6 MEQ in Sodium Chloride 0.9% 100 ML IVPB SCH (08:15)
[2022-02-03 09:24] LABS: SARS-CoV-2 NAA Rapid Test Not Detected (NotDetected)
[2022-02-03 10:34] LABS: Iron Binding Capacity, Total 34 mcg/dL (265-497)
[2022-02-03] MEDS: Vancomycin HCl 750 MG in Sodium Chloride 0.9% 250 ML 250 ML IVPB SCH ×2 (10:45→23:57)
[2022-02-03 11:22] LABS: Bacteria/HPF None Seen HPF (None Seen); Bilirubin Negative (Negative); Blood, Urine Negative (Negative); CAUTI Indications for Culture Spinal Cord Injury; Clarity Clear (Clear); Glucose, Urine (Dipstick) Normal (Negative); Ketone, Urine Negative (Negative); Leukocyte 25 Leu/uL (Negative); Nitrite Negative (Negative); Protein, Urine (Dipstick) Negative (Neg-Trace); RBC/HPF 0-3 HPF (0-3); Specific Gravity, Urine 1.006 (1.002-1.036); Squamous Epithelial None Seen HPF (0-3); Urobilinogen Normal mg/dL (Less than 2)
[2022-02-03 11:23] LABS: Urine Culture Reflex Yes Yes
[2022-02-03] MEDS: Potassium Chloride 40 MEQ in Sodium Chloride 0.45% 1,000 ML IV SCH ×2 (11:54→23:11)
[2022-02-03] MEDS: Nystatin Powder 15 GM BOT TOP PRN (11:54)
[2022-02-03] MEDS ORDERED: Heparin 25,000 units/D5W 500 ML IVPB SCH (12:15)
[2022-02-03] MEDS ORDERED: Aspirin 325 mg Enteric Coated Tablet PO SCH (12:15)
[2022-02-03] MEDS ORDERED: Heparin 10,000 UNITS/ 10 ML VIAL SLOW IVP SCH (12:15)
[2022-02-03 12:43] LABS: Hemoglobin 5.8 g/dL (12.0-16.0)
[2022-02-03 12:51] LABS: Phosphorus 2.8 mg/dL (2.3-4.7)
[2022-02-03 12:52] LABS: Magnesium 1.9 mg/dL (1.6-2.6)
[2022-02-03 12:58] LABS: Troponin I Less than 0.010 ng/mL (< 0.028)
[2022-02-03 13:04] LABS: Anion Gap 13 mmol/L (10-20); BUN (Urea Nitrogen) Less than 4 mg/dL (7.0-18.7); Calc. Creatinine Clearance 154 mL/min (70-130); Calcium 6.6 mg/dL (7.8-10.44); Carbon Dioxide 19 mmol/L (22-29); Chloride 112 mmol/L (98-107); Estimated GFR 112; Glucose 150 mg/dL (70-105); Potassium 2.8 mmol/L (3.5-5.1); Sodium 141 mmol/L (136-145)
[2022-02-03] MEDS ORDERED: Potassium Chloride 20 MEQ in Premix Bag 1 BAG IVPB SCH (13:15)
[2022-02-03] MEDS ORDERED: Morphine 4 MG/ML VIAL SLOW IVP SCH (13:30)
[2022-02-03] MEDS ORDERED: Magnesium 2 GM/50 ML(in water) 2 GM in Premix Bag 1 BAG IVPB SCH (14:00)
[2022-02-03 16:14] LABS: Hemoglobin 9.9 g/dL (12.0-16.0)
[2022-02-03 16:26] LABS: Glucose 153 mg/dL (70-105)
[2022-02-03 16:36] LABS: Troponin I Less than 0.010 ng/mL (< 0.028)
[2022-02-03] MEDS: HumaLOG 300 UNITS/3 ML VIAL SC PRN (17:34)
[2022-02-03 18:56] LABS: Troponin I Less than 0.010 ng/mL (< 0.028)
[2022-02-03] MEDS: Pantoprazole 40 MG VIAL IVP SCH (19:48)
[2022-02-04 00:19] LABS: Potassium 3.8 mmol/L (3.5-5.1)
[2022-02-04 05:27] LABS: #Lymphocytes 2.1 thou/uL (1.20-3.40); #Monocytes 0.9 thou/uL (0.11-0.59); #Neutrophils 8.4 thou/uL (1.40-6.50); %Basophils 0.2 % (0.0-1.0); %Eosinophils 0.4 % (0.0-10.0); %Lymphocytes 18.1 % (21.0-51.0); %Monocytes 8.1 % (0.0-10.0); %Neutrophils 73.1 % (42.0-75.0); Hemoglobin 9.2 g/dL (12.0-16.0); Mean Corpuscular HGB CONC 34.1 g/dL (32.0-36.0); Mean Corpuscular Hemoglobin 33.2 pg (27.0-31.0); Mean Corpuscular Volume 97.5 fl (78.0-98.0); Mean Platelet Volume 7.4 fL (7.4-10.4); Platelet Count 228 10x3/uL (130-400); RBC Distribution Width 14.7 % (11.5-14.5); Red Blood Cell (RBC) Count 2.77 mill/uL (4.20-5.40); White Blood Cell (WBC) Count 11.4 10x3/uL (4.8-10.8)
[2022-02-04 05:47] LABS: Magnesium 1.9 mg/dL (1.6-2.6)
[2022-02-04 06:04] LABS: Anion Gap 11 mmol/L (10-20); BUN (Urea Nitrogen) Less than 4 mg/dL (7.0-18.7); Calc. Creatinine Clearance 171 mL/min (70-130); Carbon Dioxide 20 mmol/L (22-29); Chloride 114 mmol/L (98-107); Estimated GFR 114; Glucose 224 mg/dL (70-105); Phosphorus 1.7 mg/dL (2.3-4.7); Potassium 3.9 mmol/L (3.5-5.1); Sodium 141 mmol/L (136-145)
[2022-02-04] MEDS: HumaLOG 300 UNITS/3 ML VIAL SC PRN ×2 (06:06→11:13)
[2022-02-04] MEDS ORDERED: Potassium Phosphate 15 MMOL in Sodium Chloride 0.9% 100 ML IVPB SCH (08:00)
[2022-02-04] MEDS ORDERED: Magnesium 2 GM/50 ML(in water) 2 GM in Premix Bag 1 BAG IVPB SCH (08:00)
[2022-02-04] MEDS: Cefepime 2 GM in Sodium Chloride 0.9% 100 ML IVPB SCH ×2 (08:11→21:03)
[2022-02-04] MEDS: Cholecalciferol 1,000 UNITS (25 MCG) TAB PO SCH (08:11)
[2022-02-04] MEDS: Pantoprazole 40 MG VIAL IVP SCH ×2 (08:13→21:03)
[2022-02-04] MEDS ORDERED: Aspirin 81 mg Enteric Coated Tablet PO SCH (09:00)
[2022-02-04] MEDS ORDERED: Fluconazole In NaCl,Iso-Osm 200 MG in Premix Bag 1 BAG IVPB SCH (09:00)
[2022-02-04 11:38] LABS: Vancomycin, Trough 12.9 ug/mL
[2022-02-04] MEDS: Vancomycin HCl 750 MG in Sodium Chloride 0.9% 250 ML 250 ML IVPB SCH (12:30)
[2022-02-04] MEDS: Vancomycin 1 GM in Premix Bag 1 BAG IVPB SCH (12:37)
[2022-02-04] MEDS: Potassium Chloride 40 MEQ in Sodium Chloride 0.45% 1,000 ML IV SCH (14:38)
[2022-02-04] MEDS: Lactated Ringer's 1,000 ML IV SCH (14:40)
[2022-02-04 15:27] LABS: Hemoglobin 10.5 g/dL (12.0-16.0)
[2022-02-04] MEDS ORDERED: Chloraseptic Spray 180 ml Bottle PO PRN (16:18)
[2022-02-04] MEDS ORDERED: Cepastat Lozenges 1 LOZ PO PRN (16:19)
[2022-02-04] MEDS ORDERED: Nystatin 500,000 UNITS/5 ML UDCUP SSW SCH (22:00)
[2022-02-05] MEDS: Vancomycin 1 GM in Premix Bag 1 BAG IVPB SCH ×2 (01:57→14:17)
[2022-02-05] MEDS: Lactated Ringer's 1,000 ML IV SCH ×2 (01:57→14:23)
[2022-02-05] MEDS ORDERED: Ondansetron ODT 4 MG TAB PO PRN (03:03)
[2022-02-05] MEDS: Ondansetron PF 4 MG/2 ML Vial IVP PRN ×2 (03:10→15:45)
[2022-02-05 04:26] LABS: Hemoglobin 10.1 g/dL (12.0-16.0); Mean Corpuscular HGB CONC 33.2 g/dL (32.0-36.0); Mean Corpuscular Hemoglobin 32.9 pg (27.0-31.0); Mean Platelet Volume 7.5 fL (7.4-10.4); Platelet Count 207 10x3/uL (130-400); Red Blood Cell (RBC) Count 3.07 mill/uL (4.20-5.40); White Blood Cell (WBC) Count 15.2 10x3/uL (4.8-10.8)
[2022-02-05 04:31] LABS: INR-International Normal Ratio 1.9
[2022-02-05 04:40] LABS: Band 1 % (5-11); Eosinophils 2 % (0-10); Lymphocytes 24 % (21-51); MDiff Complete? YES; Monocytes 1 % (0-10); Neutrophil 72 % (42-75)
[2022-02-05 04:51] LABS: ALT (SGPT) 21 U/L (8-55); AST (SGOT) 21 U/L (5-34); Albumin 2.2 g/dL (3.5-5.0); Alkaline Phosphatase 89 U/L (40-110); Anion Gap 11 mmol/L (10-20); BUN (Urea Nitrogen) 4 mg/dL (7.0-18.7); Calc. Creatinine Clearance 178 mL/min (70-130); Calcium 7.3 mg/dL (7.8-10.44); Carbon Dioxide 18 mmol/L (22-29); Chloride 115 mmol/L (98-107); Estimated GFR 115; Globulin 2.4 g/dL (2.4-3.5); Glucose 133 mg/dL (70-105); Potassium 3.4 mmol/L (3.5-5.1); Protein, Total 4.6 g/dL (6.0-8.3); Sodium 141 mmol/L (136-145)
[2022-02-05 05:05] LABS: Phosphorus 1.5 mg/dL (2.3-4.7)
[2022-02-05] MEDS ORDERED: Potassium Phosphate 22 MMOL in Sodium Chloride 0.9% 250 ML 250 ML IVPB SCH (06:30)
[2022-02-05 06:41] LABS: Bilirubin, Total 4.8 mg/dL (0.2-1.2)
[2022-02-05] MEDS: Cefepime 2 GM in Sodium Chloride 0.9% 100 ML IVPB SCH ×2 (08:27→20:28)
[2022-02-05] MEDS: Pantoprazole 40 MG VIAL IVP SCH ×2 (08:31→20:28)
[2022-02-05] MEDS: Cholecalciferol 1,000 UNITS (25 MCG) TAB PO SCH (08:34)
[2022-02-05] MEDS ORDERED: Iopamidol-370 76% 500 ML 1 ML ONE (15:39)
[2022-02-05 16:49] LABS: Magnesium 1.6 mg/dL (1.6-2.6); Phosphorus 2.5 mg/dL (2.3-4.7)
[2022-02-06 01:11] LABS: Vancomycin, Trough 25.1 ug/mL
[2022-02-06] MEDS ORDERED: Magnesium 2 GM/50 ML(in water) 2 GM in Premix Bag 1 BAG IVPB SCH (02:00)
[2022-02-06] MEDS: Vancomycin 1 GM in Premix Bag 1 BAG IVPB SCH (02:09)
[2022-02-06] MEDS: Lactated Ringer's 1,000 ML IV SCH (02:17)
[2022-02-06 04:33] LABS: Hemoglobin 9.4 g/dL (12.0-16.0); Mean Corpuscular HGB CONC 32.8 g/dL (32.0-36.0); Mean Corpuscular Hemoglobin 32.7 pg (27.0-31.0); Mean Corpuscular Volume 99.7 fl (78.0-98.0); Mean Platelet Volume 7.9 fL (7.4-10.4); Platelet Count 186 10x3/uL (130-400); Red Blood Cell (RBC) Count 2.87 mill/uL (4.20-5.40)
[2022-02-06 04:40] LABS: Anion Gap 11 mmol/L (10-20); BUN (Urea Nitrogen) Less than 4 mg/dL (7.0-18.7); Calc. Creatinine Clearance 189 mL/min (70-130); Calcium 7.3 mg/dL (7.8-10.44); Carbon Dioxide 19 mmol/L (22-29); Chloride 115 mmol/L (98-107); Estimated GFR 117; Glucose 82 mg/dL (70-105); Phosphorus 2.4 mg/dL (2.3-4.7); Potassium 3.5 mmol/L (3.5-5.1); Sodium 141 mmol/L (136-145)
[2022-02-06 04:41] LABS: Magnesium 2.2 mg/dL (1.6-2.6)
[2022-02-06] MEDS: Pantoprazole 40 MG VIAL IVP SCH ×2 (09:04→22:02)
[2022-02-06] MEDS: Cholecalciferol 1,000 UNITS (25 MCG) TAB PO SCH (09:04)
[2022-02-06] MEDS: Cefepime 2 GM in Sodium Chloride 0.9% 100 ML IVPB SCH ×2 (09:04→22:02)
[2022-02-06] MEDS ORDERED: Dextrose 10% in Water 250 ML IV SCH (12:30)
[2022-02-06] MEDS: Potassium Chloride 20 MEQ in Premix Bag 1 BAG IVPB SCH ×2 (13:00→15:05)
[2022-02-06] MEDS ORDERED: VANCOMYCIN IVPB SCH (13:00)
[2022-02-06 13:26] LABS: Vancomycin, Random 19.5 ug/mL (See Comment)
[2022-02-06] MEDS ORDERED: Morphine 4 MG/ML VIAL SLOW IVP SCH (13:30)
[2022-02-07 05:58] LABS: Hemoglobin 9.7 g/dL (12.0-16.0); Mean Corpuscular HGB CONC 32.7 g/dL (32.0-36.0); Mean Corpuscular Hemoglobin 32.8 pg (27.0-31.0); Mean Platelet Volume 8.4 fL (7.4-10.4); Platelet Count 142 10x3/uL (130-400); RBC Distribution Width 14.7 % (11.5-14.5); Red Blood Cell (RBC) Count 2.94 mill/uL (4.20-5.40); White Blood Cell (WBC) Count 8.7 10x3/uL (4.8-10.8)
[2022-02-07 06:22] LABS: Anion Gap 11 mmol/L (10-20); BUN (Urea Nitrogen) Less than 4 mg/dL (7.0-18.7); Calc. Creatinine Clearance 185 mL/min (70-130); Calcium 7.5 mg/dL (7.8-10.44); Carbon Dioxide 20 mmol/L (22-29); Chloride 116 mmol/L (98-107); Estimated GFR 116; Glucose 62 mg/dL (70-105); Potassium 3.8 mmol/L (3.5-5.1); Sodium 143 mmol/L (136-145)
[2022-02-07] MEDS: Pantoprazole 40 MG VIAL IVP SCH ×2 (08:46→21:10)
[2022-02-07] MEDS: Cefepime 2 GM in Sodium Chloride 0.9% 100 ML IVPB SCH ×2 (08:46→21:10)
[2022-02-07] MEDS: Cholecalciferol 1,000 UNITS (25 MCG) TAB PO SCH (08:46)
[2022-02-07 16:34] VITALS: BMI 31.3
[2022-02-08] MEDS: Cholecalciferol 1,000 UNITS (25 MCG) TAB PO SCH (08:01)
[2022-02-08] MEDS: Pantoprazole 40 MG VIAL IVP SCH ×2 (08:01→20:58)
[2022-02-08] MEDS: Cefepime 2 GM in Sodium Chloride 0.9% 100 ML IVPB SCH (08:01)
[2022-02-09 05:12] LABS: #Eosinphils 0.1 thou/uL (0.0-0.7); #Lymphocytes 2.1 thou/uL (1.20-3.40); #Monocytes 0.1 thou/uL (0.11-0.59); #Neutrophils 5.9 thou/uL (1.40-6.50); %Basophils 0.3 % (0.0-1.0); %Eosinophils 0.6 % (0.0-10.0); %Lymphocytes 25.9 % (21.0-51.0); %Monocytes 1.2 % (0.0-10.0); %Neutrophils 71.9 % (42.0-75.0); Mean Corpuscular HGB CONC 33.1 g/dL (32.0-36.0); Mean Corpuscular Hemoglobin 32.9 pg (27.0-31.0); Mean Corpuscular Volume 99.3 fl (78.0-98.0); Platelet Count 106 10x3/uL (130-400); RBC Distribution Width 13.8 % (11.5-14.5); Red Blood Cell (RBC) Count 3.02 mill/uL (4.20-5.40); White Blood Cell (WBC) Count 8.2 10x3/uL (4.8-10.8)
[2022-02-09 05:27] LABS: ALT (SGPT) 34 U/L (8-55); AST (SGOT) 39 U/L (5-34); Alkaline Phosphatase 135 U/L (40-110); Anion Gap 12 mmol/L (10-20); BUN (Urea Nitrogen) 5 mg/dL (7.0-18.7); Bilirubin, Total 2.6 mg/dL (0.2-1.2); Calc. Creatinine Clearance 174 mL/min (70-130); Calcium 7.6 mg/dL (7.8-10.44); Carbon Dioxide 17 mmol/L (22-29); Chloride 116 mmol/L (98-107); Estimated GFR 114; Glucose 105 mg/dL (70-105); Potassium 3.3 mmol/L (3.5-5.1); Sodium 142 mmol/L (136-145)
[2022-02-09] MEDS: Nystatin Powder 15 GM BOT TOP PRN (05:55)
[2022-02-09] MEDS ORDERED: Potassium Bicarbonate/Cit Ac 20 MEQ TAB PO SCH (09:30)
[2022-02-09] MEDS: Pantoprazole 40 MG VIAL IVP SCH ×2 (09:33→22:17)
[2022-02-09] MEDS: Cholecalciferol 1,000 UNITS (25 MCG) TAB PO SCH (09:33)
[2022-02-09] MEDS: Potassium Chloride 20 MEQ in Premix Bag 1 BAG IVPB SCH ×2 (10:58→12:31)
[2022-02-09 17:47] LABS: Potassium 4.3 mmol/L (3.5-5.1)
[2022-02-10 08:57] VITALS: BP 120/80; TEMP 97.9
[2022-02-10] MEDS: Cholecalciferol 1,000 UNITS (25 MCG) TAB PO SCH (09:48)
[2022-02-10] MEDS: Pantoprazole 40 MG VIAL IVP SCH (09:48)
== END 2022-02-10 18:01 | DRG 698 ==
LOC: ERS 03:00 → SUATTDRO 03:00 → CCU 05:31 → MSONC 02-04 15:36
PROVIDERS: ADMIT Family Medicine; ATTEND Family Medicine
PROC: 02H633Z Insertion of Infusion Device into Right Atrium, Percutaneous Approach (ICD-10-PCS; principal; 2022-02-03)
PROC: B548ZZA Ultrasonography of Superior Vena Cava, Guidance (ICD-10-PCS; 2022-02-03)
PROC: 0T2BX0Z Change Drainage Device in Bladder, External Approach (ICD-10-PCS; 2022-02-03)
PROC: 30233N1 Transfusion of Nonautologous Red Blood Cells into Peripheral Vein, Percutaneous Approach (ICD-10-PCS; 2022-02-03)
PROC: 3E03329 Introduction of Other Anti-infective into Peripheral Vein, Percutaneous Approach (ICD-10-PCS; 2022-02-03)
PROC: 30233J1 Transfusion of Nonautologous Serum Albumin into Peripheral Vein, Percutaneous Approach (ICD-10-PCS; 2022-02-03)
DX: T83.511A Infection and inflammatory reaction due to indwelling urethral catheter, initial encounter (principal); A41.9 Sepsis, unspecified organism; L89.154 Pressure ulcer of sacral region, stage 4; R65.21 Severe sepsis with septic shock; G82.20 Paraplegia, unspecified; E11.52 Type 2 diabetes mellitus with diabetic peripheral angiopathy with gangrene; N39.0 Urinary tract infection, site not specified; F41.9 Anxiety disorder, unspecified; I10 Essential (primary) hypertension; E11.42 Type 2 diabetes mellitus with diabetic polyneuropathy; Z98.890 Other specified postprocedural states; F17.210 Nicotine dependence, cigarettes, uncomplicated; D64.9 Anemia, unspecified; Y83.8 Other surgical procedures as the cause of abnormal reaction of the patient, or of later complication, without mention of misadventure at the time of the procedure; F31.9 Bipolar disorder, unspecified; E87.6 Hypokalemia; E83.42 Hypomagnesemia; E83.51 Hypocalcemia; E11.69 Type 2 diabetes mellitus with other specified complication; G35 Multiple sclerosis; N31.9 Neuromuscular dysfunction of bladder, unspecified; L89.629 Pressure ulcer of left heel, unspecified stage; Z20.822 Contact with and (suspected) exposure to COVID-19; N18.2 Chronic kidney disease, stage 2 (mild); Z86.718 Personal history of other venous thrombosis and embolism; Z79.01 Long term (current) use of anticoagulants; Z88.8 Allergy status to other drugs, medicaments and biological substances; Z79.899 Other long term (current) drug therapy; Z74.01 Bed confinement status
CPT/HCPCS: 36415; 36416; 36430; 36556; 70450; 71045; 71260; 80048; 80053; 80202; 81001; 82274; 82306; 82607; 83010; 83540; 83550; 83615; 83735; 84100; 84484; 85025; 85027; 85610; 86850; 86900; 86901; 87040; 87811; 93005; 93010; 96374; 96375; 97139; C9113; J0610; J0692; J1450; J1815; J2270; J2405; J3370; J3370-JW; J3475; J3480; J3490; J7050; J7120; P9016; P9047; Q9967